=== PATIENT | female | born 1980 | race Caucasian/White ===

== ENCOUNTER 2024-07-21 08:00 | Outpatient (RCR) | payer MEDICARE, SELFPAY ==
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
--- NOTE | 2024-07-21 10:59 | BH.COMM ---
Communication Note Communication with Client Communication Note: Met with pt to complete initial paperwork and administer the CSSR-S screening and risk assessment. Pt is a high risk as pt reports chronic passive thoughts of and admits that she had a suicide attempt via overdose 3 weeks ago and one interrupted attempt via walking in traffic in which she was escorted to the hospital by the local electrical engineering draftsperson. Pt hospitalized 3x in past moth for suicidal ideation. Pt denies any current thoughts of, plan, intent, or thoughts of methods for suicide. Pt does have a safety plan. Pt has a hx of self-harm but none in the past 20 years. No access to weapons- however does report stockpiled medication. Receptive of safety planning and therapist and pt contacted pt's to dispose of excess medication at [facility] and put any prescriptions in a lock box. Pt in agreement with plan. Pt is future oriented and identifies protective factors. Discussed case with Dr. Barrientos and pt will be admitted to [facility] tx with a diagnosis of Bipolar , current episode depressed F31.30
--- NOTE | 2024-07-21 10:59 | BH.COMM ---
Communication Note Communication with Client Communication Note: Met with pt to complete initial paperwork and administer the CSSR-S screening and risk assessment. Pt is a high risk as pt reports chronic passive thoughts of and admits that she had a suicide attempt via overdose 3 weeks ago and one interrupted attempt via walking in traffic in which she was escorted to the hospital by the local slip feeder. Pt hospitalized 3x in past moth for suicidal ideation. Pt denies any current thoughts of, plan, intent, or thoughts of methods for suicide. Pt does have a safety plan. Pt has a hx of self-harm but none in the past 20 years. No access to weapons- however does report stockpiled medication. Receptive of safety planning and therapist and pt contacted pt's to dispose [facility] and put any prescriptions in a lock box. Pt in agreement with plan. Pt is future oriented and identifies protective factors. Discussed case with Dr. Barrientos and pt will be admitted to [facility] tx with a diagnosis of Bipolar , current episode depressed F31.30
--- NOTE | 2024-07-21 11:15 | BH.SGPN.GN ---
Behaviors/Verbalizations/Mental Status: [] Client alert and oriented, casually dressed and groomed. Eye contact good. Motor activity appropriate. Speech within normal limits. Affect congruent, mood depressed and anxious. Thoughts linear, logical, no signs of hallucinations or delusions Client Response/Progress/Benefit: [] Client was an active participant, AEB taking notes and providing input when prompted in group discussions and activities. Attentive during psychoeducation. Client engaged during interactive discussion in which the group defined self-care and discussed its benefits. Group discussed barriers to engaging in self-care. Client participated in small groups where they worked to identify common self-care ?myths?. Benefited from increased awareness of self-care, its benefits, and the consequences of not utilizing self-care strategies. Will continue IOP tx to prevent decompensation and maintain safety, promote healthy coping skill application, and increase functioning. Narrative Note: []
--- NOTE | 2024-07-21 11:15 | BH.SGPN.GN ---
Behaviors/Verbalizations/Mental Status: []Client alert and oriented, neatly dressed and groomed. Eye contact good. Motor activity appropriate. Speech within normal limits. Affect congruent, mood depressed and anxious. Thoughts linear, logical, no signs of hallucinations or delusions. Client Response/Progress/Benefit: [] Pt engaged participant AEB completing self-assessment worksheet and providing input throughout discussion. Pt completed worksheet identifying current self-care practices and what self-care activities Pt wants to start using. Pt selected physical self-care to begin practicing more consistently. Pt plans to do this by ?hydrating more.? Appeared to benefit from completing the self-care evaluation and gaining insights into current self-care practices, as well as identifying areas in which Pt would like to improve upon. Pt will continue IOP tx to prevent decompensation, maintain safety, and increase distress tolerance skills. Narrative Note: []
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
--- NOTE | 2024-07-21 11:56 | BH.MTP_ITS ---
Master Treatment Plan Patient Information Program Physician:: Dr. Abraham Barrientos Primary Therapist:: KATINA Valentin Psychiatric Diagnoses Psychiatric Diagnoses:: Major Depressive Disorder, Generalized Anxiety Disorder, ADHD Diagnosis Code(s):: F33.2 Estimated LOS Estimated LOS (in weeks):: 8 Problem/Goal #1 Problem/Goal #1 Stated Goal:: Pt will decrease depressive symptoms, isolation, anhedonia, and negative thinking. Description of Barriers: Pt has limited supports, several psychosocial stressors including her daughter's mental health and other daughter's behavioral issues, 3 recent inpatient admissions, low distress tolerance and significant negative core beliefs Functional Impact: Pt is a 43 year old female who has a hx of bipolar disorder, depression, anxiety, and adhd. She was referred to the [facility] IOP by her outpatient provider at [facility] after being hospitalized x3 in the month of June. Patient had suicide attempt by overdose attempt with trazodone after which she was hospitalized at [facility]. Shortly after patient had SI of walking in to traffic and called crisis and subsequently hospitalized at [facility]. She got sick shortly after and was started on prednisone which apparently triggered an episode of psychosis. [place] like she was in a mixed episode and was then hospitalized at [facility].. Follows with Dr. Mccoy at [address] [place] [address] Psychiatry. Describes mood now as anxious. Last night was particularly stressful as her daughter has autism and ADHD and has been having meltdowns. She is 8 years old. Last lithium was after hospitalization. 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 Did recently have a online neuropsychology appointment which apparently led to a diagnosis of autism Spectrum. Pt endorses chronic suicidal ideation, negative self-talk, guilt, worthlessness, hopelessness, racing thoughts, rumination, anhedonia, and low motivation Objectives Objective #1: Stated Objective: Pt will learn and utilize 2-3 healthy coping strategies to better manage depressive symptoms as shown by a decrease of DMS-5 symptoms for depression. Interventions: Through group and individual sessions, therapist will help pt identify triggers and warning signs of depression and guilt including emotional, physical, and behavioral changes. Therapist will teach pt various coping skills to manage symptoms and give pt tangible resources to use to regulate emotions. Therapist will use cognitive restructuring techniques and help pt gain awareness of negative thoughts that reinforce guilt and depression. Therapist will provide psychoeducation on maintenance cycles and help pt learn ways to break unhealthy maintenance cycles. Therapist will help pt incorporate behavioral activation and assist pt in setting SMART goals. Discharge Criteria: Pt will have met this goal when can report learning and using at least 2 coping skills to manage depressive symptoms and reduce isolation. Additionally, pt will have met this goal when pt's DSM-5 scores for depression decrease. Target Date: 09/16/24 Review Date: 08/10/24 Objective #2: Stated Objective: Client will work with therapist to develop a concrete ?crisis plan? or emotional dysregulation plan to implement during depressive episodes or acute events which includes emergency telephone numbers, internal/external coping strategies for SI/overwhelming emotions, lists of supports, warning signs, positive aspects of life, and motivations Interventions: Client will work with therapist to develop a ?crisis plan? or emotional dysregulation plan which includes emergency telephone numbers, internal/external coping strategies for SI/overwhelming emotions, lists of supports, warning signs, positive aspects of life, and motivations Discharge Criteria: complete emotion dysregulation plan. Target Date: 09/16/24 Review Date: 08/10/24 Problem/Goal #2 Problem/Goal #2 Stated Goal:: Will reduce anxiety symptoms and better manage ADHD through increasing emotional regulation and distress tolerance skills Description of Barriers: Pt has limited supports, several psychosocial stressors including her daughter's mental health and other daughter's behavioral issues, 3 recent inpatient admissions, low distress tolerance and significant negative core beliefs Functional Impact: Pt is a 43 year old female who has a hx of bipolar disorder, depression, anxiety, and adhd. She was referred to the [facility] IOP by her outpatient provider at [facility] after being hospitalized x3 in the month of June. Patient had suicide attempt by overdose attempt with trazodone after which she was hospitalized at [facility]. Shortly after patient had SI of walking in to traffic and called crisis and subsequently hospitalized at [facility]. She got sick shortly after and was started on prednisone which apparently triggered an episode of psychosis. [place] like she was in a mixed episode and was then hospitalized at [facility].. Follows with Dr. Mccoy at [address] [place] [address] Psychiatry. Describes mood now as anxious. Last night was particularly stressful as her daughter has autism and ADHD and has been having meltdowns. She is 8 years old. Last lithium was after hospitalization. 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 Did recently have a online neuropsychology appointment which apparently led to a diagnosis of autism Spectrum. Pt endorses chronic suicidal ideation, negative self-talk, guilt, worthlessness, hopelessness, racing thoughts, rumination, anhedonia, and low motivation Objectives Objective #1: Stated Objective: Pt will increase ability to manage stressors and anxiety by gaining 2-3 distress tolerance skills. Interventions: Through group and individual therapy, pt will learn various coping skills to help manage stress and anxiety. Therapist will utilize DBT distress tolerance skills to increase awareness and give pt tools to more effectively manage anxiety. Therapist will provide psychoeducation on emotional regulation and help pt identify unhealthy coping skills pt wants to change. Discharge Criteria: Pt will have accomplished this goal when can report improved ability to manage stressors and identify at least 2 distress tolerance skills. Target Date: 09/16/24 Review Date: 08/10/24 Objective #2: Stated Objective: pt will identify 2-3 cognitive distortions that lead to rumination and learn 2-3 ways to manage these thoughts to better manage anxiety. Interventions: Therapist will provide education on the most common cognitive distortions and teach pt the connection between thoughts, emotions, and feelings. Therapist will assist pt in identifying, challenging, and replacing dysfunctional thoughts with positive, more realistic thoughts. Therapist will use CBT and DBT techniques to help pt gain awareness of thinking errors and learn how to more effectively handle negative thoughts. Discharge Criteria: Pt will have accomplished this goal when can identify at least 2 cognitive distortions and at least 2 coping skills to manage negative thoughts. Target Date: 09/16/24 Review Date: 08/10/24
--- NOTE | 2024-07-21 11:56 | BH.MTP_ITS ---
Master Treatment Plan Patient Information Program Physician:: Dr. Abraham Barrientos Primary Therapist:: KATINA Valentin Psychiatric Diagnoses Psychiatric Diagnoses:: Major Depressive Disorder, Generalized Anxiety Disorder, ADHD Diagnosis Code(s):: F33.2 Estimated LOS Estimated LOS (in weeks):: 8 Problem/Goal #1 Problem/Goal #1 Stated Goal:: Pt will decrease depressive symptoms, isolation, anhedonia, and negative thinking. Description of Barriers: Pt has limited supports, several psychosocial stressors including her daughter's mental health and other daughter's behavioral issues, 3 recent inpatient admissions, low distress tolerance and significant negative core beliefs Functional Impact: Pt is a 43 year old female who has a hx of bipolar disorder, depression, anxiety, and adhd. She was referred to the [facility] IOP by her outpatient provider at [facility] after being hospitalized x3 in the month of June. Patient had suicide attempt by overdose attempt with trazodone after which she was hospitalized at [facility]. Shortly after patient had SI of walking in to traffic and called crisis and subsequently hospitalized at [facility]. She got sick shortly after and was started on prednisone which apparently triggered an episode of psychosis. [place] like she was in a mixed episode and was then hospitalized at [facility].. Follows with Dr. Mccoy at [address] [place] [address] Psychiatry. Describes mood now as anxious. Last night was particularly stressful as her daughter has autism and ADHD and has been having meltdowns. She is 8 years old. Last lithium was after hospitalization. 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 Did recently have a online neuropsychology appointment which apparently led to a diagnosis of autism Spectrum. Pt endorses chronic suicidal ideation, negative self-talk, guilt, worthlessness, hopelessness, racing thoughts, rumination, anhedonia, and low motivation Objectives Objective #1: Stated Objective: Pt will learn and utilize 2-3 healthy coping strategies to better manage depressive symptoms as shown by a decrease of DMS-5 symptoms for depression. Interventions: Through group and individual sessions, therapist will help pt identify triggers and warning signs of depression and guilt including emotional, physical, and behavioral changes. Therapist will teach pt various coping skills to manage symptoms and give pt tangible resources to use to regulate emotions. Therapist will use cognitive restructuring techniques and help pt gain awareness of negative thoughts that reinforce guilt and depression. Therapist will provide psychoeducation on maintenance cycles and help pt learn ways to break unhealthy maintenance cycles. Therapist will help pt incorporate behavioral activation and assist pt in setting SMART goals. Discharge Criteria: Pt will have met this goal when can report learning and using at least 2 coping skills to manage depressive symptoms and reduce isolation. Additionally, pt will have met this goal when pt's DSM-5 scores for depression decrease. Target Date: 09/16/24 Review Date: 08/10/24 Objective #2: Stated Objective: Client will work with therapist to develop a concrete ?crisis plan? or emotional dysregulation plan to implement during depressive episodes or acute events which includes emergency telephone numbers, internal/external coping strategies for SI/overwhelming emotions, lists of supports, warning signs, positive aspects of life, and motivations Interventions: Client will work with therapist to develop a ?crisis plan? or emotional dysregulation plan which includes emergency telephone numbers, internal/external coping strategies for SI/overwhelming emotions, lists of supports, warning signs, positive aspects of life, and motivations Discharge Criteria: complete emotion dysregulation plan. Target Date: 09/16/24 Review Date: 08/10/24 Problem/Goal #2 Problem/Goal #2 Stated Goal:: Will reduce anxiety symptoms and better manage ADHD through increasing emotional regulation and distress tolerance skills Description of Barriers: Pt has limited supports, several psychosocial stressors including her daughter's mental health and other daughter's behavioral issues, 3 recent inpatient admissions, low distress tolerance and significant negative core beliefs Functional Impact: Pt is a 43 year old female who has a hx of bipolar disorder, depression, anxiety, and adhd. She was referred to the [facility] IOP by her outpatient provider at [facility] after being hospitalized x3 in the month of June. Patient had suicide attempt by overdose attempt with trazodone after which she was hospitalized at [facility]. Shortly after patient had SI of walking in to traffic and called crisis and subsequently hospitalized at [facility]. She got sick shortly after and was started on prednisone which apparently triggered an episode of psychosis. [place] like she was in a mixed episode and was then hospitalized at [facility].. Follows with Dr. Mccoy at [address] [place] [address] Psychiatry. Describes mood now as anxious. Last night was particularly stressful as her daughter has autism and ADHD and has been having meltdowns. She is 8 years old. Last lithium was after hospitalization. 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 Did recently have a online neuropsychology appointment which apparently led to a diagnosis of autism Spectrum. Pt endorses chronic suicidal ideation, negative self-talk, guilt, worthlessness, hopelessness, racing thoughts, rumination, anhedonia, and low motivation Objectives Objective #1: Stated Objective: Pt will increase ability to manage stressors and anxiety by gaining 2-3 distress tolerance skills. Interventions: Through group and individual therapy, pt will learn various coping skills to help manage stress and anxiety. Therapist will utilize DBT distress tolerance skills to increase awareness and give pt tools to more effectively manage anxiety. Therapist will provide psychoeducation on emotional regulation and help pt identify unhealthy coping skills pt wants to change. Discharge Criteria: Pt will have accomplished this goal when can report improved ability to manage stressors and identify at least 2 distress tolerance skills. Target Date: 09/16/24 Review Date: 08/10/24 Objective #2: Stated Objective: pt will identify 2-3 cognitive distortions that lead to rumination and learn 2-3 ways to manage these thoughts to better manage anxiety. Interventions: Therapist will provide education on the most common cognitive distortions and teach pt the connection between thoughts, emotions, and feelings. Therapist will assist pt in identifying, challenging, and replacing dysfunctional thoughts with positive, more realistic thoughts. Therapist will use CBT and DBT techniques to help pt gain awareness of thinking errors and learn how to more effectively handle negative thoughts. Discharge Criteria: Pt will have accomplished this goal when can identify at least 2 cognitive distortions and at least 2 coping skills to manage negative thoughts. Target Date: 09/16/24 Review Date: 08/10/24
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
--- NOTE | 2024-07-22 09:00 | BH.SGPN.GN ---
Behaviors/Verbalizations/Mental Status: [] Pt alert and oriented, neatly dressed and groomed. Eye contact good. Motor activity appropriate. Speech shaky. Affect congruent, mood anxious Thoughts linear, logical, no signs of hallucinations or delusions. Reviewed pt?s symptom tracker, no risk for suicidal ideation, plan, or intent 07/22/24. Client Response/Progress/Benefit: []Pt was an active participant in group discussions. Attentive. Able to identify mental health wins including using deep breathing to manage her anxiety last night and taking breaks when she got overwhelmed last night. Pt's stressor today is ?my daughter was having meltdown after meltdown last night.? Pt is feeling anxious? this morning as it is pt?s second day of IOP. Pt receptive to feedback from peers which pt reported was helpful. Progress noted. Benefited from group support, encouragement, and feedback. Will continue IOP tx to prevent decompensation, improve daily functioning, and maintain safety. ? Narrative Note: []
--- NOTE | 2024-07-22 10:00 | BH.SGPN.GN ---
Behaviors/Verbalizations/Mental Status: [] Eye contact is good. Motor activity is appropriate. Appearance is casual. Speech is Appropriate. Mood is anxious and depressed. Affect is congruent. Thoughts are linear and logical. No evidence of psychosis. Client Response/Progress/Benefit: [] Pt was engaged and participating throughout, providing input and taking notes. Attentive during psychoeducation on anxiety and cognitive triangle. Participated in an interactive discussion on defining anxiety and identifying cognitive and physiological symptoms of anxiety. The group discussed helpful vs harmful anxiety. Pt identified their physical/physiological signs of anxiety which includes:migraines, butterflies in stomach, feeling increased heart rate Benefited from increased awareness and insight on anxiety and its impact. Will continue in IOP to prevent decompensation, maintain safety, and increase healthy coping. Narrative Note: []
--- NOTE | 2024-07-22 11:00 | BH.SGPN.GN ---
Behaviors/Verbalizations/Mental Status: [] Eye contact is fair. Motor activity is appropriate. Appearance is casual. Speech is Appropriate. Mood is depressed and anxious. Affect is congruent. Thoughts are linear and logical. No evidence of psychosis. Client Response/Progress/Benefit: [] Pt was an active participant AEB pt providing input and listening attentively to peers. Attentive during psychoeducation on mindfulness coping skills, body-based coping skills, and mind-based coping skills and their impact on reducing anxiety and improving overall mental health wellness. Group was able to identify self-soothing and mind-based coping skills which included: 5-senses, meditation, deep breathing, TIPP, thought challenging, prayer, affirmation, brain games, weighted blanket, and progressive muscle relaxation. Pt also participated with peers in practicing progressive muscle relaxation during session. Appeared to benefit from increasing repertoire of anxiety reduction skills. Pt will continue IOP to maintain safety, prevent decompensation/re-admission to psych unit, and to increase healthy coping. Narrative Note: []
--- NOTE | 2024-07-25 06:24 | PCM.BH.PSYEV ---
Psychiatric Evaluation Initial Evaluation Initial Evaluation: Initial Treatment Plan Patient Information Visit Information: ADMISSION DATE: 07/21/2024 EXPECTED LOS: 4-6 weeks Problems/Symptoms Problem #1:: Depression Symptom:: Sadness, hopelessness, worthlessness, anhedonia, low energy, recent suicidal ideation, low motivation Problem #2:: Anxiety Symptom:: Rumination, worry, recent history of panic attacks and panic, nightmares, avoidance, flashbacks with triggers Problem #3:: ADHD Symptom:: Poor concentration, limited motivation
--- NOTE | 2024-07-25 09:00 | BH.SGPN.GN ---
Behaviors/Verbalizations/Mental Status: [] ?Eye contact is good. Motor activity is appropriate. Appearance is casual. Speech is Appropriate. Mood is dysthymic . Affect is congruent. Thoughts are linear and logical. No evidence of psychosis. Reviewed daily check in sheet, suicidal ideations within established baseline, Pt denies plan or intent. Client Response/Progress/Benefit: [] ?Pt was an active participant in group discussions. Attentive. Did well to identify 2 mental health wins including using several healthy coping skills to manage complicated emotions following a disagreement with her [id number] over the weekend. Reports that she would have turned to self-harm in the past but instead went on a hike and spent time weeding her garden. Additional win noted as accomplishing some of her cleaning goals that she has been putting off. Pt reports feeling proud of the healthy and productive choices she made this weekend. St[place] noted as her relationship with her [id number], but did well to what is in her control that she can focus on in the situation. Progress noted. Benefited from group support, encouragement, and feedback. Will continue in IOP to prevent decompensation, promote mood stability and safety, and increase healthy coping consistency. Narrative Note: []
--- NOTE | 2024-07-25 09:00 | BH.SGPN.GN ---
Behaviors/Verbalizations/Mental Status: [] ?Eye contact is good. Motor activity is appropriate. Appearance is casual. Speech is Appropriate. Mood is dysthymic . Affect is congruent. Thoughts are linear and logical. No evidence of psychosis. Reviewed daily check in sheet, suicidal ideations within established baseline, Pt denies plan or intent. Client Response/Progress/Benefit: [] ?Pt was an active participant in group discussions. Attentive. Did well to identify 2 mental health wins including using several healthy coping skills to manage complicated emotions following a disagreement with her [id number] over the weekend. Reports that she would have turned to self-harm in the past but instead went on a hike and spent time weeding her garden. Additional win noted as accomplishing some of her cleaning goals that she has been putting off. Pt reports feeling proud of the healthy and productive choices she made this weekend. Stressor noted as her relationship with her [id number], but did well to what is in her control that she can focus on in the situation. Progress noted. Benefited from group support, encouragement, and feedback. Will continue in IOP to prevent decompensation, promote mood stability and safety, and increase healthy coping consistency. Narrative Note: []
--- NOTE | 2024-07-25 11:00 | BH.SGPN.GN ---
Behaviors/Verbalizations/Mental Status: []Pt alert and oriented, casually dressed and groomed. Eye contact good. Motor activity restless. Speech within normal limits. Affect congruent, mood anxious. Thoughts linear, logical, no signs of hallucinations or delusions. Client Response/Progress/Benefit: [] Pt responded well to session AEB Pt listening attentively to others and providing input during group discussion on the pay offs and costs of the different communication styles. Pt able to connect how current communication style impacts mental health. Connected with peers? comments about the importance of using assertive communication. Pt seemed to benefit from increasing awareness of healthy strategies to improve communication and worked with peers during the experiential activity to practice assertive communication. Pt was second-guessing herself during the activity, but did well with encouragement from peers. Will continue IOP tx to prevent decompensation, increase distress tolerance skills, and reduce negative thinking patterns. ??? Narrative Note: []
--- NOTE | 2024-07-25 11:40 | BH.MDN ---
Multi-Disciplinary Note Note 45-min Individual: Time Started:: 10:24 Date: 07/25/24 Purpose of session/treatment goals addressed:: Purpose of session was to process a stressor from the weekend impacting pt mood and resulting in increased self-harm urges. Eye Contact:: Good Motor Activity:: Appropriate (shaky at times when discussing) Appearance:: Casual Speech:: Appropriate Mood:: Anxious and Depressed Affect:: Congruent Thoughts:: Linear, Logical and No evidence of hallucinations/delusions noted Staff Interventions:: thought challenging, psychoeducation on: (mistaken beliefs), CBT techniques, rapport building, strengths perspective and taught coping skills (distress tolerance skills to prevent cutting) Client Response:: Pt responded well to session, open to meeting with therapist. Shared feeling ?sad? today and indicated that the weekend had been difficult for her due to an incident with her [id number] Thursday evening. Went on to explain that she had made a political post on Facebook that her jrcqtq-hf-can did not agree with and he made several hurtful comments as a result. Pt admits to responding to his comments with additional passive-aggressive posts which resulted in her [id number] becoming upset and ultimately ?disowning? pt. Pt reports that although she is not close with her [id number] and believes limited contact would be beneficial, his response did trigger thoughts of ?Nobody wants me around?. Shared passive thoughts of and self-harming throughout the weekend as well. Noted that she was able to refrain from acting on these thoughts and instead used deep breathing, healthy distraction, and reaching out to supports. Reports pulling weeds aided in emotional release and helped to reduce her negative thinking. Pt?s mother and sister also came and sat with her which she described as helpful. Some insight that her suicidal thoughts have become a safety behavior for moments she feels overwhelmed or has an adverse experience. Connected with self-harming and SI as means of ?escaping? the painful emotions. Therapist applauded pt for not acting on self-harm urges and worked with pt to review distress tolerance skills she can use instead. Provided pt with a list of healthy alternatives to self-harming. Pt and therapist processed the incident triggering thoughts of ?nobody wants me around? and pt provided insight that she believes this stems from her childhood. Receptive of psychoeducation on mistaken beliefs and willing to complete mistaken belief assessment to review in next session. Identified 3 positive self-talk messages she can read in moments she has this thought. Risks/Concerns:: Pt reports passive SI without plan or intent over the weekend. Able to follow-through with safety plan and reach out to supports. Denies actually wanting to and provided insight that this was in response to a disagreement with her [id number]. Future oriented and reports her children are protective factors. Progress Toward Goals/Plan:: Some progress noted as pt reports that although she is sad today, she did well to manage her emotions and not act on self-harming urges when faced with a stressor over the weekend. Reports utilizing skills such as reaching out to supports, deep breathing, and time outdoors as healthy distraction. Pt does note ongoing issues with caregiving stress and negative self-talk. Noted struggling with the relationship with herself for much of her life and wanting to work on improving this. Recommended continued IOP tx to prevent decompensation and maintain safety, improve healthy coping and distress tolerance, and stabilize mood. Time Stopped:: 11:04
--- NOTE | 2024-07-25 11:40 | BH.MDN ---
Multi-Disciplinary Note Note 45-min Individual: Time Started:: 10:24 Date: 07/25/24 Purpose of session/treatment goals addressed:: Purpose of session was to process a stressor from the weekend impacting pt mood and resulting in increased self-harm urges. Eye Contact:: Good Motor Activity:: Appropriate (shaky at times when discussing) Appearance:: Casual Speech:: Appropriate Mood:: Anxious and Depressed Affect:: Congruent Thoughts:: Linear, Logical and No evidence of hallucinations/delusions noted Staff Interventions:: thought challenging, psychoeducation on: (mistaken beliefs), CBT techniques, rapport building, strengths perspective and taught coping skills (distress tolerance skills to prevent cutting) Client Response:: Pt responded well to session, open to meeting with therapist. Shared feeling ?sad? today and indicated that the weekend had been difficult for her due to an incident with her [id number] Thursday evening. Went on to explain that she had made a political post on Facebook that her whyasx-tu-qls did not agree with and he made several hurtful comments as a result. Pt admits to responding to his comments with additional passive-aggressive posts which resulted in her [id number] becoming upset and ultimately ?disowning? pt. Pt reports that although she is not close with her uknbno-wa-ozi and believes limited contact would be beneficial, his response did trigger thoughts of ?Nobody wants me around?. Shared passive thoughts of and self-harming throughout the weekend as well. Noted that she was able to refrain from acting on these thoughts and instead used deep breathing, healthy distraction, and reaching out to supports. Reports pulling weeds aided in emotional release and helped to reduce her negative thinking. Pt?s mother and sister also came and sat with her which she described as helpful. Some insight that her suicidal thoughts have become a safety behavior for moments she feels overwhelmed or has an adverse experience. Connected with self-harming and SI as means of ?escaping? the painful emotions. Therapist applauded pt for not acting on self-harm urges and worked with pt to review distress tolerance skills she can use instead. Provided pt with a list of healthy alternatives to self-harming. Pt and therapist processed the incident triggering thoughts of ?nobody wants me around? and pt provided insight that she believes this stems from her childhood. Receptive of psychoeducation on mistaken beliefs and willing to complete mistaken belief assessment to review in next session. Identified 3 positive self-talk messages she can read in moments she has this thought. Risks/Concerns:: Pt reports passive SI without plan or intent over the weekend. Able to follow-through with safety plan and reach out to supports. Denies actually wanting to and provided insight that this was in response to a disagreement with her [id number]. Future oriented and reports her children are protective factors. Progress Toward Goals/Plan:: Some progress noted as pt reports that although she is sad today, she did well to manage her emotions and not act on self-harming urges when faced with a stressor over the weekend. Reports utilizing skills such as reaching out to supports, deep breathing, and time outdoors as healthy distraction. Pt does note ongoing issues with caregiving stress and negative self-talk. Noted struggling with the relationship with herself for much of her life and wanting to work on improving this. Recommended continued IOP tx to prevent decompensation and maintain safety, improve healthy coping and distress tolerance, and stabilize mood. Time Stopped:: 11:04
--- NOTE | 2024-07-27 09:00 | BH.SGPN.GN ---
Behaviors/Verbalizations/Mental Status: [] Client alert and oriented, casual appearance. Eye contact good. Motor activity appropriate. Speech within normal limits. Affect congruent, mood irritable. Thoughts linear, logical, no signs of hallucinations or delusions. Reviewed client's symptom tracker, no risk for suicidal ideation, plan, or intent. Client Response/Progress/Benefit: [] Client responded well to session AEB listening to others and sharing thoughts/feelings. client reported mental stressor has been watching the news specifically seeing all the protest happening across the world. Client stated she recognized yesterday that her anxiety was increasing significantly which led to her turning off the TV instead of spending hours watching something that was triggering her anxiety. Client noted mental's positive as going hiking and felt excited that she was able to photograph a rare mushroom that she saw while hiking. Appeared to benefit from support from peers. Will continue IOP tx to improve daily functioning, challenge negative thought patterns, and prevent decompensation. Narrative Note: []
--- NOTE | 2024-07-27 10:00 | BH.SGPN.GN ---
Behaviors/Verbalizations/Mental Status: []Client alert and oriented, casually dressed. Eye contact good. Motor activity appropriate. Speech within normal limits. Affect congruent, mood anxious and depressed. Thoughts linear, logical, no signs of hallucinations or delusions. Client Response/Progress/Benefit: [] Pt was an active participant AEB taking notes and engaging in group activity. Connected with the topic of pitfalls and listened to group discussion on barriers that prevent from choosing a healthier path to mental wellness. Group worked together to identify examples of personal pitfalls. These examples included; shutting down, not asking for help, negative thinking patterns, avoidance, and isolation. Pt benefited from group as Pt learned to better identify potential barriers to improving mental health symptoms. Identified barrier of not asking for help. Pt will continue IOP tx to prevent decompensation, improve distress tolerance, and increase self-confidence.
--- NOTE | 2024-07-27 11:05 | BH.SGPN.GN ---
Behaviors/Verbalizations/Mental Status: []Client alert and oriented, casually dressed and groomed. Eye contact good. Motor activity restless and shaking hands. Speech within normal limits. Affect congruent, mood content and anxious. Thoughts linear, logical, no signs of hallucinations or delusions. Client Response/Progress/Benefit: [] Pt receptive of session, engaged throughout AEB Pt actively listening and contributing to discussion as well as taking notes.? Pt participated in the experiential activity and did well to communicate ideas with peers and manage emotions. Pt attentive as group processed how the emotions and perspective of the group impacted the activity. Pt admitted that she wanted to shut down and quit, but pt was able to complete the activity with peers. Group worked together to identify different coping skills to help manage pitfalls. Pt identified a pitfalls they struggle with as focusing on the negative, fear of failure, and personalizing. Pt plans to work on their pitfall by ?using opposite action and not going home to nap.? Benefited from identifying personal pitfalls and strategies to overcome these pitfalls. Pt will continue IOP tx to prevent decompensation, increase use of healthy coping skills, and increase distress tolerance. Narrative Note: []
--- NOTE | 2024-07-29 08:50 | BH.COMM ---
Communication Note Communication with Client Communication Note: Pt reported hand tremors in the past week and she thought it might be related to having too much lithium in her system. Requested her lithium lab results which she was shown. Case discussed with Dr. Barrientos. He reviewed lithium levels as well and they are WNL. He requested further information from patient regarding past antipsychotic use and previous trials of medications for tremors. Pt reported hx of propranolol, Austedo, and cogentin for tremors. Most recent was Austedo in 2019. Past antipsychotic use of Seroquel, Latuda, and Vraylar. Dr. Barrientos recommended reducing lithium to 300mg BID. Pt informed and script sent.
--- NOTE | 2024-08-02 10:00 | BH.SGPN.GN ---
Behaviors/Verbalizations/Mental Status: []Pt alert and oriented, casually dressed and groomed. Eye contact good. Motor activity appropriate. Speech within normal limits. Affect congruent, mood anxious. Thoughts linear, logical, no signs of hallucinations or delusions. Client Response/Progress/Benefit: [] Pt participated in the group discussions AEB providing input and taking notes. Attentive during psychoeducation Goal Setting. Participated during the discussion on common barriers. Pt worked with group to identify common barriers to goal setting and pt reported personal barriers as procrastination, negative thinking, and self-doubt. Group also identified benefits of goals, which included: sense of purpose, improved self-confidence, more motivation for other goals, sense of accomplishment, and improved mental health. Pt identified personal benefits to goal setting. Benefited from increased awareness of mental health benefits of goals as well as psychoeducation on SMART goal criteria. Will continue in IOP to prevent decompensation, gain healthy coping skills, and improve distress tolerance and stress management skills. ?? Narrative Note: []
--- NOTE | 2024-08-02 11:33 | BH.MDN ---
Multi-Disciplinary Note Note 45-min Individual: Time Started:: 09:15 Date: 08/02/24 Purpose of session/treatment goals addressed:: To address and create a safety/coping plan with pt regarding pt's concerns for sx of luisa. Eye Contact:: Good Motor Activity:: Appropriate Appearance:: Casual Speech:: Appropriate Affect:: Congruent Thoughts:: Linear, Logical and No evidence of hallucinations/delusions noted Staff Interventions:: motivational interviewing, CBT techniques, rapport building, strengths perspective and completed risk assessment / safety planning (created coping plan for potential chaya sx) Client Response:: Pt receptive of session, actively engaged throughout. Reports that although her depression is reduced, she has some concern for potential sx of chaya. Described lack of sleep since Thursday, despite trying to do so. Noted feeling that her body did not need sleep. Additional sx includes increased irritability and restlessness/increased shakiness. Pt shared an example of lashing out at her when trying to much dinner last night as she could not stop her hands from shaking. Unsure if this is secondary to increased lithium dosage last week or potential chaya related restlessness. Shared that she has not experienced chaya to point of hospitalization ?for a few years?. Describes current sx as early warning signs and she typically will begin experiences urges to spend impulsively, organize the house in the middle of the night, or take off on a 3am walk. Pt reports her is now solely in charge of their finances as a spending safe guard. Receptive of working with therapist to safety plan for harm?s reduction if cycling. Pt identified plans to give her the car keys. Additional plan to begin incorporating a more structured bedtime routine to encourage better sleep. Bedtime routine to include going for a walk with a support after putting her daughter to bed. This is aimed at easing the transition from her daughter?s bedtime which can at times be overstimulating, to calming herself prior to bed. Pt reports she will then complete hygiene routine and progressive muscle relaxation in bed. If unable to sleep. Pt will engage in a calming activity such as listening to instrumental music and drawing. Pt agreeable to begin mood tracker as well to begin monitoring changes in symptomology based on day/time, ect., as well as discuss additional warning signs with to further safety plan. Pt noted beliefs that a recent stressor, changes in her 8-year-old daughter?s behavior may have been a trigger to her own change in mood state. Discussed taking breaks with her when overwhelmed, as well as provided pt with online and local parenting support groups and resources for parents of children with an autism diagnosis. Will consult with program psychiatrist and continue to monitor sx. Risks/Concerns:: Pt denies SI, plan, or intent as of this date 08/02/24. Does report lack of sleep and concerns for chaya which is being addressed with program psychiatrist and pt willing to safety plan with therapist as well. Progress Toward Goals/Plan:: Progress variable. Pt denies any current SI, plan, or intent. Pt reports following through with practicing taking a break, getting back into activities she enjoys, and deep breathing. Nightly progressive muscle relaxation to improve sleep. Pt reports limited to no sleep since Thursday which has been a stressor. Increased caregiving stress as well contributing to heightened irritability. Pt recommended continued IOP tx to prevent decompensation, improve mood stability, and maintain safety. Time Stopped:: 09:55
--- NOTE | 2024-08-02 11:40 | PCM.BH.PN ---
Charges/Coding Behavior Health Behavior Health EST Pt E/M: 78955 Est Pt Level IV Intake Intake Visit Reasons: Poor sleep Allergies No Known Allergies Allergy (Verified 07/29/24 09:02) Medications ?Medication ?Instructions ?Recorded ?Confirmed ?Type doxepin 10 mg capsule 10 mg PO QHS PRN sleep #30 caps 07/22/24 Rx hydroxyzine pamoate 25 mg capsule 25 mg PO TID PRN anxiety 14 days 07/22/24 07/29/24 Rx (Vistaril) #42 caps atomoxetine 40 mg capsule 40 mg PO DAILY 07/29/24 07/29/24 History (Strattera) gabapentin 300 mg capsule 300 mg PO BID 07/29/24 07/29/24 History hydroxyzine HCl 25 mg tablet 25 mg PO TID PRN anxiety 07/29/24 07/29/24 History lithium carbonate 300 mg tablet 300 mg PO BID #60 tabs 07/29/24 Rx sertraline 100 mg tablet (Zoloft) 100 mg PO DAILY 07/29/24 07/29/24 History levothyroxine 50 mcg tablet 50 mcg PO DAILY 08/02/24 08/02/24 History (Euthyrox) quetiapine 50 mg tablet (Seroquel) See Rx Instructions .Route 08/02/24 Rx .COMPLEX #60 tabs [facility] [place] () Medical History (Updated 08/02/24 @ 12:[address] Shania Montenegro MD) Bipolar I disorder Exam Mental Status Exam- Psych () Appearance casually dressed, adequately groomed and no apparent distress Attitude cooperative and calm Activity/Motor Behavior MSE activity/motor behavior finding no adventitious movements Speech regular rate and regular volume Mood other (Slightly elevated) Affect full range Thought Process linear and logical Thought Content other (Reports seeing shadows and possible some mumbled voices last night) Suicidal Ideation none Homicidal Ideation none Attention intact Concentration intact Sensorium/Orientation awake and alert Memory/Cognition intact Insight fair Judgement fair Exam () Narrative Exam Narrative: -Current psychiatric medications: Gabapentin 300 mg p.o. twice daily, doxepin 10 mg nightly, Strattera 40 mg daily, hydroxyzine 25 mg 3 times daily as needed, lithium 300 mg twice daily, Zoloft 100 mg -SUBJECTVE: Patient reports since last or Thursday she has not been sleeping but has not been tired, she is not sure if this started before or after her lithium dose was decreased. Is still having some shaking but is only given the decreased dose for several days. Notes that she has been irritable but does not necessarily have any increased goal-oriented activity. She reports last night she had some jumbled and mumbled voices that she did not think were there and sometimes she will see shadows out of the corner of her eyes but when she looks they are gone but denies any other AH/VH. No SI or HI. Regard patient's tremor we did discuss that she is on Synthroid, previously it was felt that her Synthroid dose was causing tachycardia and she had been decreased to 50 mcg sometimes last year and has not had any further lab work since that time per patient and she is agreeable to getting thyroid labs. Discussed given her lack of sleep in light of her history that she will likely need a medication adjustment to help improve sleep. Patient tolerated Seroquel well in the past but was ultimately taken off she thinks due to increased appetite, she is agreeable to trying this again to see if it can help her sleep and help current symptoms. Assessment & Plan () Assessment & Plan (1) Bipolar I disorder: Problem Details: Patient has a history of bipolar disorder, for several days she has had decreased sleep but is not tired and has been irritable Plan: Patient reports in the past if she has been able to get sleep she usually will improve before things get worse, agreeable to trialing Seroquel, take 50 mg tonight then increase to 100 mg nightly. She does believe she was only on Seroquel nightly before and not twice daily. Can certainly escalate dose if needed from there. She will continue her other medications at current doses. She is unsure if doxepin has been helpful, ultimately if she is sleeping better with Seroquel may be able to discontinue doxepin if she still does not derive any benefit Medications: New quetiapine (Seroquel) Take 50mg for one night then 100mg nightly after 60 tabs 0RF Visit Details Comments: Spent a total of [ ] minutes on the date of the service which included [ ].
--- NOTE | 2024-08-02 13:01 | BH.DR.ITP ---
Initial Treatment Plan Patient Information Visit Information: ADMISSION DATE: EXPECTED LOS: 6-8 weeks Diagnoses:: Bipolar disorder Problems/Symptoms Problem #1:: Bipolar disorder Symptom:: Lack of sleep, increased irritability
--- NOTE | 2024-08-03 09:00 | BH.SGPN.GN ---
Behaviors/Verbalizations/Mental Status: [] Client alert and oriented, casual appearance. Eye contact good. Motor activity appropriate. Speech within normal limits. Affect congruent, mood euthymic. Thoughts linear, logical, no signs of hallucinations or delusions. Reviewed client's symptom tracker, no risk for suicidal ideation, plan, or intent. Client Response/Progress/Benefit: [] Client responded well to session AEB listening to others and sharing thoughts/feelings. Client reported mental positive as taking her new medication last night and it helped her sleep. Client stated she really has not had a lot of sleep in the last few days and is feeling much better now that she got a good night's rest. Client reported additional mental positive as being able to change the way she responded to her daughter yesterday which resulted in client being able to de-escalate a situation. Client noted she does not have a current stressor. Appeared to benefit from support from peers. Will continue IOP tx to improve mood stability, challenge negative thought patterns, and prevent decompensation. Narrative Note: []
--- NOTE | 2024-08-03 10:00 | BH.SGPN.GN ---
Behaviors/Verbalizations/Mental Status: []Pt alert and oriented, neatly dressed and groomed. Eye contact good. Motor activity appropriate. Speech within normal limits. Affect congruent, mood euthymic. Thoughts linear, logical, no signs of hallucinations or delusions. Client Response/Progress/Benefit: [] Pt was an active participant in group discussion and experiential activity. Attentive during psychoeducation on resilience and provided input throughout. Participated in interactive discussion with peers on the definition of resilience and where it comes from. Group identified that resiliency can be impacted by; past experiences, upbringing, and personality traits. Able to relate experiential activity of group juggle to topics of resilience. Worked with peers in small group in which they identified factors that contribute to resilience and did well providing ideas. Benefited from increased awareness of resilience and the factors that contribute to building resilience. Will continue in IOP tx to increase distress tolerance skills, improve daily functioning, and increase self-confidence. ? Narrative Note: []
--- NOTE | 2024-08-03 11:00 | BH.SGPN.GN ---
Behaviors/Verbalizations/Mental Status: [] Eye contact is good. Motor activity is appropriate. Appearance is casual. Speech is Appropriate. Mood is anxious. Affect is congruent. Thoughts are linear and logical. No evidence of psychosis. Client Response/Progress/Benefit: [] Pt responded well to session AEB completing the resilience worksheet provided. Pt actively participated in the discussion and worked cooperatively with group to identify strategies to enhance each of the components discussed. Pt reports belief they already use resilience trait of ?making connections and moving towards goals.? Pt was able to identify areas related to resilience to focus on in the future. Pt seemed to benefit from discussing strategies for improving personal resilience and identifying resilience traits Pt already possesses. Will continue IOP tx to maintain safety, prevent decompensation/re-admission to psych unit, and to increase healthy coping.
--- NOTE | 2024-08-05 09:00 | BH.SGPN.GN ---
Behaviors/Verbalizations/Mental Status: [] Pt alert and oriented, neatly dressed and groomed. Eye contact good. Motor activity appropriate. Speech within normal limits. Affect congruent, mood euthymic. Thoughts linear, logical, no signs of hallucinations or delusions. Reviewed pt?s symptom tracker, no risk noted as pt was within her baseline for SI on 08/05/24. Client Response/Progress/Benefit: []Pt was an active participant in group discussions. Attentive. Able to identify mental health wins including getting to IOP today despite being tired and not ?jumping right to suicidal thoughts? when she and her got into an argument. Pt shared she took a break and went to bed early instead. ?Pt's stressor today is ?I got in a fight with my last night.? The group offered pt encouragement and emotional support which pt reported was helpful. Pt is feeling content this morning. Pt receptive to feedback from peers. Progress noted. Benefited from group support, encouragement, and feedback. Will continue IOP tx to increase distress tolerance skills, reduce frequency of passive SI, and improve daily functioning. ? Narrative Note: []
--- NOTE | 2024-08-05 10:10 | BH.SGPN.GN ---
Behaviors/Verbalizations/Mental Status:?[] Client alert and oriented, casually dressed and groomed. Eye contact fair. Motor activity appropriate. Speech within normal limits. Affect congruent, mood anxious. Thoughts linear, logical, no signs of hallucinations or delusions. Client Response/Progress/Benefit:?[] Pt engaged in session AEB client listening attentively to peers and providing input. Attentive and contributed to discussion as group worked on defining?self-confidence?and identifying benefits of?self-confidence, as well as factors that can effect?self-confidence?levels. Pt was an active participant in activity in which the group read and processed each right on the Personal Bill of Rights worksheet. Pt identified the rights they struggle with believing. Benefited from increased education on?self-confidence?and what effects it. Pt will continue IOP tx to challenge distorted/negative thoughts, improve emotional regulation skills, and prevent decompensation.
--- NOTE | 2024-08-05 11:15 | BH.SGPN.GN ---
Behaviors/Verbalizations/Mental Status: [] Client alert and oriented, casually dressed and groomed. Eye contact good. Motor activity appropriate. Speech within normal limits. Affect congruent, mood anxious. Thoughts linear, logical, no signs of hallucinations or delusions. Client Response/Progress/Benefit: [] Pt engaged in session AEB client listening attentively to peers and providing input. Attentive and contributed to discussion as group worked on identifying thought patterns and behaviors that negatively effect self-confidence. Pt identified behaviors that effect their confidence as: self-comparing and giving up on things. Engaged in confidence building activity and worked with the group to identify strategies for improving self-confidence. Pt identified plans to begin positive affirmations as a means of improving own self-confidence. Benefited from increased education on self-confidence building skills. Pt will continue IOP tx to increase self-confidence, improve emotional regulation skills, and prevent decompensation. Narrative Note: []
--- NOTE | 2024-08-09 09:05 | BH.SGPN.GN ---
Behaviors/Verbalizations/Mental Status: [] Eye contact is good. Motor activity is appropriate. Appearance is casual. Speech is Appropriate. Mood is anxious and depressed. Affect is congruent. Thoughts are linear and logical. No evidence of psychosis. Reviewed daily check in sheet and no reports of suicidal ideations or intent. Client Response/Progress/Benefit: [] Pt participated at times during the group discussions. Attentive. Reports very overwhelming weekend. Elaborated on stressors which primarily involved a medication change which exacerbated mental health issues with her daughter. At one point she had to speak with mental health crisis line and police due to daughter?s behaviors. Despite these significant stressors she was able to ask for help, give herself some respite, and complete self-care. Limited progress due to significant stressors however reports that recent medication changes have helped with sleep and hypomania. Benefited from group support, encouragement, and feedback. Will continue in IOP to maintain safety, prevent decompensation/re-admission, and improve functioning. Narrative Note: []
--- NOTE | 2024-08-09 10:15 | BH.SGPN.GN ---
Behaviors/Verbalizations/Mental Status: []Pt alert and oriented, neatly dressed and groomed. Eye contact good. Motor activity appropriate. Speech within normal limits. Affect congruent, mood content, anxious. Thoughts linear, logical, no signs of hallucinations or delusions. Client Response/Progress/Benefit: [] Pt participated during the group discussion, providing input and remaining attentive during psychoeducation. Participated in experiential activity. Pt contributed during interactive discussion on the consequences of unhealthy expression of emotions. Worked with group to identify several consequences which included hurting relationships and isolating oneself. Contributing during interactive discussion on common potholes to effectively communicating. Pt was able to relate and make connections between the experiential activity and the overall topic, managing emotions through activity by rocking [id number] and thought challenging. Benefited from increased awareness of how stress and emotions can impact one's ability to communicate. Will continue in IOP to prevent decompensation, increase stress management skills, and improve daily functioning. Narrative Note: []
--- NOTE | 2024-08-09 10:15 | BH.SGPN.GN ---
Behaviors/Verbalizations/Mental Status: []Pt alert and oriented, neatly dressed and groomed. Eye contact good. Motor activity appropriate. Speech within normal limits. Affect congruent, mood content, anxious. Thoughts linear, logical, no signs of hallucinations or delusions. Client Response/Progress/Benefit: [] Pt participated during the group discussion, providing input and remaining attentive during psychoeducation. Participated in experiential activity. Pt contributed during interactive discussion on the consequences of unhealthy expression of emotions. Worked with group to identify several consequences which included hurting relationships and isolating oneself. Contributing during interactive discussion on common potholes to effectively communicating. Pt was able to relate and make connections between the experiential activity and the overall topic, managing emotions through activity by rocking [id number] and thought challenging. Benefited from increased awareness of how stress and emotions can impact one's ability to communicate. Will continue in IOP to prevent decompensation, increase stress management skills, and improve daily functioning. Narrative Note: []
--- NOTE | 2024-08-09 11:15 | BH.SGPN.GN ---
Behaviors/Verbalizations/Mental Status: [] Eye contact is good. Motor activity is appropriate. Appearance is casual. Speech is Appropriate. Mood is depressed and anxious. Affect is congruent. Thoughts are linear and logical. No evidence of psychosis. Client Response/Progress/Benefit: [] Client engaged in session AEB client listening attentively to peers and providing input at times. Attentive during psychoeducation on 4 zones of regulation. Pt able to identify feelings and behaviors for each zone. Pt identified coping skills one can use to support self in each zone. Pt stated belief that pt is in the yellow zone today. Pt reports grounding, talking to supports and mindfulness skills to move herself closer to the green zone. Benefited from increased education on zones of regulation or stages of alertness for emotions and healthy coping skills to use for each zone. Pt will continue IOP tx to prevent decompensation/re-admission to psych unit, maintain safety, stabilize mood, and improve functioning. Narrative Note: []
--- NOTE | 2024-08-10 09:05 | BH.SGPN.GN ---
Behaviors/Verbalizations/Mental Status: [] Eye contact is good. Motor activity is appropriate. Appearance is casual. Speech is Appropriate. Mood is euthymic. Affect is full. Thoughts are linear and logical. No evidence of psychosis. Reviewed daily check in sheet and no reports of suicidal ideations or intent. Client Response/Progress/Benefit: [] Pt participated at times during the group discussion. Attentive. Daily symptom tracker notes minimal distress. Pt reports feeling ?content?. Tells group that she took feedback from peers yesterday and looked into podcasts as a form of distraction and self-care. She found several interesting podcasts and believes this will be a very helpful tool for her mental health. Progress noted. No significant stressors noted. Reports sleep has improved since last week and mood is stabilizing from possible hypomanic episode. Benefited from group support, encouragement, and feedback. Will continue in IOP to maintain safety, prevent decompensation/re-admission to psych unit, and to stabilize mood. Narrative Note: []
--- NOTE | 2024-08-10 10:10 | BH.SGPN.GN ---
Behaviors/Verbalizations/Mental Status: [] Eye contact is good. Motor activity is appropriate. Appearance is casual. Speech is Appropriate. Mood is anxious. Affect is congruent. Thoughts are linear and logical. No evidence of psychosis. Client Response/Progress/Benefit: [] Pt engaged in session AEB listening attentively to others and providing input throughout. Pt engaged in activity, able to connect how it can be uncomfortable and difficult to practice acceptance when situations are out of one?s own control. Identified she is struggling with accepting her daughter is going to need a lot of help throughout life. Worked with peer group to define acceptance and identify the benefits that acceptance can bring. Benefits included; reduce stuckness, reduced stress, helps one to focus on situations we can change, and decreased negative self-talk. Seemed to benefit from increased awareness of the meaning as well as the importance of acceptance. Will continue in IOP to prevent decompensation, challenge distorted thoughts, and increase healthy coping.
--- NOTE | 2024-08-10 11:15 | BH.SGPN.GN ---
Behaviors/Verbalizations/Mental Status: []Pt alert and oriented, casually dressed and groomed. Eye contact good. Motor activity appropriate. Speech within normal limits. Affect congruent, mood anxious. Thoughts linear, logical, no signs of hallucinations or delusions. Client Response/Progress/Benefit: [] Pt responded well to session AEB taking notes and contributing to discussion throughout. Pt engaged as group continued discussion on acceptance and the mental health benefits of practicing acceptance. Pt and peers identified what makes acceptance challenging and pt completed a self-reflection exercise on what is hard to accept in pt's life. Pt identified something that is currently hard to accept as her daughter's ongoing struggles with behavioral issues. Client stated by not accepting this it leads to negative self-talk, hopelessness, and guilt. Group identified strategies to increase acceptance. Pt noted wanting to work on finding others experiencing similar issues as a strategy for improving acceptance in this area. Pt appeared to benefit from gaining insight and learning strategies to increase acceptance. Pt will continue IOP tx to improve insight, increase mood stability, and prevent decompensation. Narrative Note: []
--- NOTE | 2024-08-10 14:22 | BH.MTP_ITS ---
Treatment Plan Review Demographics Date of Admission:: 07/21/24 Date of Treatment Plan Review:: 08/12/24 Admitting Diagnoses:: Diagnosis #1:: Major Depressive Disorder Diagnosis #2:: Generalized Anxiety Disorder Diagnosis #3:: ADHD Diagnosis #4:: Bipolar I Current Diagnoses:: Diagnosis #1:: Major Depressive Disorder Diagnosis #2:: Generalized Anxiety Disorder Diagnosis #3:: ADHD Diagnosis #4:: Bipolar I Patient Status Patient's Response to Treatment:: Pt has maintained consistent attendance and is an active participant in groups and individual sessions. Provides supportive feedback, insight, and completes all assigned homework. Status of Current Problems and Symptoms: Ongoing problems. Per DSM-5 and pt self-report, overall sx and ability to manage symptomology is improved. Pt scores reflect an overall 38% reduction in mental health sx, Pt expresses improved mood and coping capacity. Pt does continue to endorse anxiety, low stress tolerance, guilt, hopelessness at times, difficulties managing her daughter?s behavioral issues, and conflict with her regarding parenting. Progress Problem #1: Problem Name:: Depression, adhd Status of Goals:: In progress. Obj 1: not met. Pt is able to identify healthy coping skills, but is struggling with applying those skills consistently outside of treatment; specifically in regard to negative self-talk. Reports more actively engaging in activities she enjoys if motivation is there; however on days she is not motivated she struggles with doing so. Does note continued negative self-talk related to her ability to navigate her 8 year old daughter?s behavioral issues and struggles with self-doubt and fear she is a ?bad mother? as a result. Depressive sx reduced by 20% Obj 2: Complete. client has successfully created and reports consistent utilization of a depression coping plan to aid in managing and prevention of potential crisis. Reports a 67% reduction in passive suicidal ideation as a result. Team Recommendations:: Team recommends client continue current goals and objectives to give more time for progress to be observed. Problem #2: Problem Name:: Anxiety, mood instability Status of Goals:: Continued progress encouraged. Obj 1: Client has been taught and can verbalize healthy calming and distress tolerance skills for anxiety like grounding, guided meditation, and breathing skills. Client has verbalized she does think these skills help when remembering to utilize them, though often forgets in moments of high stress. Obj 2: Client has awareness of several cognitive distortions and negative core beliefs reinforcing her anxiety and depression; however, she struggles with believing the positive self-talk messages she is trying to more consistently incorporate. Per DSM 5 cross-cutting scores at review client's anxiety has decreased by 25%. Team Recommendations:: Team recommends client continue current goals and o bjectives to give more time for progress to be observed, with specific focus on improving interpersonal effectiveness
--- NOTE | 2024-08-10 14:22 | BH.MDN_ITS ---
Multi-Disciplinary Note Note 30-min Individual: Time Started:: 12:08 Date: 08/10/24 Purpose of session/treatment goals addressed:: Purpose of session to address tx plan goal #1 obj #2 and goal #2 obj #1. Eye Contact:: Good Motor Activity:: Appropriate Appearance:: Casual Speech:: Appropriate and Other (vocal shaking tick present) Mood:: Euthymic and Anxious Affect:: Congruent Thoughts:: Linear, Logical and No evidence of hallucinations/delusions noted Staff Interventions:: motivational interviewing, psychoeducation on: (distress tolerance skills), CBT techniques, strengths perspective, reviewed DSM-5 and goal setting Client Response:: Pt receptive of session, actively engaged throughout. Reports overall mood and sleep are improved since last week. Noted she has been sleeping through the night without problem since adjusting medications while experiencing sx of hypomania. Described improved mood stability over the last week as well. Worked with therapist to review homework to identify common warning signs and triggers for changes in mood such as hypomania or depression. Pt identified a polo change as differences in perspective and energy levels. Noted however that since she has started IOP tx, she is feeling an increase in her overall ability to find small positives if she has been stuck on the negatives. Did express some difficulties in remembering to do this in the moment however, which at times impedes overall distress tolerance. Connected with concept of using a visual aid as a cue to thought challenge in those moments. Indicated wanting to make something she can put on her water bottle or a polo chain where she will consistently be exposed to it. Went on to report increased engagement in activities she is finding enjoyable, as well as spending time exploring new interests such as podcasts. Primary stressor continues to be managing caregiving responsibilities for her 6 [id number] who struggles with significant mental health and behavioral issues. Would like to work on improving her own emotion regulation in these moments as pt provided insight that when overstimulated/overwhelmed she becomes easily dysregulated as well. Did identify plans to purchase noise canceling headphone to reduce sensory over load and look into options for crease a sensory calming area in the home as well. Risks/Concerns:: None noted. Pt denies SI, plan, or intent as of this date 08/10/24 Progress Toward Goals/Plan:: Progress noted. Pt reports improved mood and DSM-5 scores reflect overall sx reduction since beginning IOP tx 3 weeks ago. Pt noted increased confidence and improved ability to challenge her perspective. Improved motivation and energy, noting increased involvement in activities she enjoys and goals for her future. Pt identifies some recent conflict with her regarding childcare responsibilities and approaches in managing the needs and behaviors of their daughter. Daughter's mental health and behavioral issues continue to be a significant source of stress and negative self-talk, doubt when struggling to help her daughter regulate. Pt recommended continued IOP tx to further improve confidence in her own ability to cope, distress tolerance, as well as prevent decompensation. Time Stopped:: 12:38
--- NOTE | 2024-08-12 08:53 | PCM.BH.PN ---
Intake Intake Visit Reasons: Follow-up Allergies No Known Allergies Allergy (Verified 07/29/24 09:02) Medications ?Medication ?Instructions ?Recorded ?Confirmed ?Type doxepin 10 mg capsule 10 mg PO QHS PRN sleep #30 caps 07/22/24 Rx hydroxyzine pamoate 25 mg capsule 25 mg PO TID PRN anxiety 14 days 07/22/24 07/29/24 Rx (Vistaril) #42 caps atomoxetine 40 mg capsule 40 mg PO DAILY 07/29/24 07/29/24 History (Strattera) gabapentin 300 mg capsule 300 mg PO BID 07/29/24 07/29/24 History hydroxyzine HCl 25 mg tablet 25 mg PO TID PRN anxiety 07/29/24 07/29/24 History lithium carbonate 300 mg tablet 300 mg PO BID #60 tabs 07/29/24 Rx sertraline 100 mg tablet (Zoloft) 100 mg PO DAILY 07/29/24 07/29/24 History levothyroxine 50 mcg tablet 50 mcg PO DAILY 08/02/24 08/02/24 History (Euthyrox) quetiapine 100 mg tablet 150 mg (1.5 x 100 mg) PO QDAY 30 08/12/24 Rx days #45 tabs HPI () History of Present Illness History provided by: patient Chief complaint: Depression/anxiety HPI: La Kelley is a 43 year old female seen today for follow up evaluation. Has been doing better since starting on quetiapine. Has been sleeping better, getting about 8-9 hours of sleep since starting with exception of the last two night. Mood has been a little more irritable the past two days, but prior to that was feeling somewhat brighter. Did follow with psychiatrist, Dr. Mccoy, last Thursday who did discontinue patient's doxepin. Believes this has been reason for somewhat worsening sleep. Tremor is largely back to baseline since reducing lithium. Appetite has been stable. Feels like program has been helpful this point. Feeling close to normal self. Youngest daughter, who has autism, had a violent meltdown earlier this week and she had to call crisis on patient. They now have belief that daughter has bipolar. Has had some fleeting thoughts of not being alive, denies any active thoughts of suicide. Patient denies any SI HI or AVH. Review of systems () Constitutional Denies: fever(s), chills, change in weight or fatigue Eyes Denies: change in vision or blurry vision Ears, Nose, Mouth, Throat Denies: throat pain, neck pain or change in hearing Cardiovascular Denies: chest pain, palpitations or dyspnea Respiratory Denies: dyspnea, cough or wheezing Gastrointestinal Denies: abdominal pain, nausea, vomiting, diarrhea or constipation Genitourinary Denies: dysuria or urinary frequency Musculoskeletal Denies: back pain, neck pain, joint pain or muscle weakness Integumentary/Breast Denies: rash or new lesions Neurological Reports: other (Tremor significantly improved); Denies: headache(s), dizziness or confusion Endocrine Denies: fatigue or excessive sweating Hematologic/Lymphatic Denies: easy bruising or easy bleeding Allergic/Immunologic Denies: wheezing Exam Mental Status Exam- Psych () Appearance casually dressed, adequately groomed and no apparent distress Attitude cooperative and calm Activity/Motor Behavior MSE activity/motor behavior finding no adventitious movements Speech regular rate and regular volume Mood OK Affect constricted Thought Process linear and logical Thought Content no delusions and no hallucinations Suicidal Ideation none Homicidal Ideation none Attention intact Concentration intact Sensorium/Orientation awake and alert Memory/Cognition intact Insight fair Judgement fair Assessment & Plan () Assessment & Plan (1) Bipolar I disorder: Plan: - Largely doing well in regards to mood - Tremor has markedly improved ? Patient is to increase her quetiapine to 150 mg at bedtime secondary to poor sleep since discontinuing doxepin Continue other medications as before Medications: New quetiapine Take 50mg for one night then 100mg nightly after 60 tabs 0RF Charges/Coding Behavior Health Behavior Health EST Pt E/M: 16827 Est Pt Level IV
--- NOTE | 2024-08-12 09:05 | BH.SGPN.GN ---
Behaviors/Verbalizations/Mental Status: [] Eye contact is good. Motor activity is appropriate. Appearance is casual. Speech is Appropriate. Mood is anxious and irritable. Affect is full. Thoughts are linear and logical. No evidence of psychosis. Reviewed daily check in sheet and no reports of suicidal ideations or intent. Client Response/Progress/Benefit: [] Pt participated at times during the group discussions. Attentive. Daily symptom tracker notes 3/5 for anxiety and irritability. Shred that she has disengaged from social media feedback loop and elaborated on her reasons. She believes that this has decreased her anxiety, worry, stress, and hoplessness. Progress noted. Sleep is stabilizing. Denies hypomanic symptoms. Benefited from group support, encouragement, and feedback. Will continue in IOP to maintain safety, prevent decompensation/re-admission to psych unit, and to improve functioning. Narrative Note: []
--- NOTE | 2024-08-12 10:10 | BH.SGPN.GN ---
Behaviors/Verbalizations/Mental Status: [] Eye contact is good. Motor activity is appropriate. Appearance is casual. Speech is Appropriate. Mood is anxious. Affect is congruent. Thoughts are linear and logical. No evidence of psychosis. Client Response/Progress/Benefit: [] Pt semi engaged participant AEB listening to others, engaging in activity, and providing feedback at times. Attentive during psychoeducation that provided insight into obstacles that impede mental wellness. Pt shared with group current mental health reality and desired mental health reality. Identified barriers to desired reality include: p feelings of being overwhelmed and shutting down, fear of failure, and financial issues. Benefited from taking look at current mental health state and obstacles for progress. Pt to continue IOP tx to improve mood stability, challenge distortions, and prevent decompensation.
--- NOTE | 2024-08-12 11:10 | BH.SGPN.GN ---
Behaviors/Verbalizations/Mental Status: [] Eye contact is good. Motor activity is appropriate. Appearance is casual. Speech is Appropriate. Mood is euthymic. Affect is congruent. Thoughts are linear and logical. No evidence of psychosis. Client Response/Progress/Benefit: [] Pt was an engaged participant in group discussion and activity. Worked with group to identify strategies to help overcome barriers and obstacles to desired reality. Group developed strategies for the common barriers. Identified personal barriers to desired reality and choose one obstacle to work on. Pt stated wanting to work on barrier of negative thinking by reminding herself that thoughts are not facts. Pt seemed to benefit from increased repertoire of healthy coping skills/strategies to overcome common barriers to moving forward. Pt is to continue IOP increase functioning, challenge distortions, and prevent decompensation. Narrative Note: []
--- NOTE | 2024-09-01 10:10 | BH.SGPN.GN ---
Behaviors/Verbalizations/Mental Status: [] Client alert and oriented, casually dressed and groomed. Eye contact good. Motor activity appropriate. Speech within normal limits. Affect congruent, mood euthymic. Thoughts linear, logical, no signs of hallucinations or delusions. Client Response/Progress/Benefit: [] Client was an active participant in activity and taking notes during group discussion. Attentive during psychoeducation on coping skills, why people use unhealthy coping skills, and how to replace unhealthy coping skills. Benefited from increased understanding of unhealthy coping skills and the need for developing healthy interna and external coping skills. Pt will continue IOP tx to prevent decompensation and improve daily functioning. Narrative Note: []
== END 2024-08-15 23:59 ==
LOC: BHIOP 08:00
PROVIDERS: PCP Family Medicine; Referring Provider Psychiatry & Neurology Psychiatry; Visit Provider Psychiatry & Neurology Psychiatry
DX: F31.31 Bipolar disorder, current episode depressed, mild (principal); F41.1 Generalized anxiety disorder; F90.9 Attention-deficit hyperactivity disorder, unspecified type
CPT/HCPCS: S9480; 90832; 90834; 90853

== ENCOUNTER 2024-08-16 07:15 | Outpatient (RCR) | payer MEDICARE, SELFPAY ==
--- NOTE | 2024-08-16 09:00 | BH.SGPN.GN ---
Behaviors/Verbalizations/Mental Status: [] ?Eye contact is good. Motor activity is appropriate. Appearance is casual. Speech is Appropriate. Mood is content, anxious. Affect is congruent. Thoughts are linear and logical. No evidence of psychosis. Reviewed daily check in sheet and no reports of suicidal ideations or intent. Client Response/Progress/Benefit: [] ?Pt was an active participant in group discussions. Attentive. Did well to identify 2 mental health wins including managing to use opposite action to complete daily responsibilities over the weekend. Additional win noted as cooking 3 meals over the weekend as well rather than ordering out. Current stressor noted as managing her daughter's behavioral issues. Reports trying to focus on what's in her control. Progress noted. Benefited from group support, encouragement, and feedback. Will continue in IOP to prevent decompensation, promote mood stability, and increase healthy coping consistency. Narrative Note: []
--- NOTE | 2024-08-16 10:10 | BH.SGPN.GN ---
Behaviors/Verbalizations/Mental Status: []Pt alert and oriented, casually dressed and groomed. Eye contact good. Motor activity appropriate. Speech within normal limits. Affect congruent, mood content, calm. Thoughts linear, logical, no signs of hallucinations or delusions. Client Response/Progress/Benefit: [] Pt an active participant in group discussions on defining conflict (internal/external) and possible benefits to conflict. Attentive during psychoeducation on conflict styles (avoidant, accommodating, competing, cooperative) and engaged during group discussion in which peers identified the benefits and consequences to each conflict style. Pt identified that pt tends to be avoidant and stated ?I avoid at all costs.? Benefited from increased awareness of the impact of conflict styles in mental health. Will continue in IOP tx to promote use of healthy coping skills, improve daily functioning, and reduce shutting down. Narrative Note: []
--- NOTE | 2024-08-16 10:12 | BH.MDN_ITS ---
Multi-Disciplinary Note Note 30-min Individual: Time Started:: 08:14 Date: 08/16/24 Purpose of session/treatment goals addressed:: The purpose of this session was to address treatment plan goal #1 obj #2 and goal #2 obj #1. Eye Contact:: Good Motor Activity:: Appropriate Appearance:: Casual Speech:: Appropriate Mood:: Depressed Affect:: Congruent Thoughts:: Linear, Logical and No evidence of hallucinations/delusions noted Staff Interventions:: thought challenging, motivational interviewing, CBT techniques and strengths perspective Client Response:: Pt receptive of session, actively engaged throughout. Reports feeling anxious and agitated today as she continues to struggle with her 8-year-old daughter?s emotional outbursts. Pt continues to struggle with finding local supports but does have In Home Based therapy scheduled to begin in September. Pt explained that her daughter intentionally opened the window and let the cat out around 3am this morning. Noted that this created a conflict with her and that she is still feeling on edge as a result. Did do well to practice grounding skills such as deep breathing this morning. Went on to note that her headset hasn?t been working, which is a way she regulates her emotions when her daughter becomes overstimulating. Pt identified the importance of having music to give herself a break and reports plans to replace her set. Pt went on to note progress in continuing to accomplish small tasks around the house, as well as getting more consistent in using positive self-talk and deep breathing. Reports she has gotten back into her spirituality and has gone to [facility] the last few we eks. Pt reports wanting to increase supports at [facility] but does not usually reach out when there. Identified the importance of communication in developing strong healthy supports. Pt identified goal to say ?hi? to at least on member of her [facility] this week. Risks/Concerns:: None note. Pt denies SI, plan, or intent as of this date. Future oriented and protective factors noted. Progress Toward Goals/Plan:: Progress remains variable. Pt continued to do well with working on improving distress tolerance and using grounding skills to manage her emotions when feeling overwhelmed or stressed out; however struggles with doing so on a consistent basis. Pt does report improved engagement in activities she enjoys and improving on advocating for her needs. Pt recommended continued IOP tx to promote gains, continue to improve mood stability, and prevent decompensation. Time Stopped:: 08:45
--- NOTE | 2024-08-16 10:12 | BH.MDN_ITS ---
Multi-Disciplinary Note Note 30-min Individual: Time Started:: 08:14 Date: 08/16/24 Purpose of session/treatment goals addressed:: The purpose of this session was to address treatment plan goal #1 obj #2 and goal #2 obj #1. Eye Contact:: Good Motor Activity:: Appropriate Appearance:: Casual Speech:: Appropriate Mood:: Depressed Affect:: Congruent Thoughts:: Linear, Logical and No evidence of hallucinations/delusions noted Staff Interventions:: thought challenging, motivational interviewing, CBT techniques and strengths perspective Client Response:: Pt receptive of session, actively engaged throughout. Reports feeling anxious and agitated today as she continues to struggle with her 8-year-old daughter?s emotional outbursts. Pt continues to struggle with finding local supports but does have In Home Based therapy scheduled to begin in September. Pt explained that her daughter intentionally opened the window and let the cat out around 3am this morning. Noted that this created a conflict with her and that she is still feeling on edge as a result. Did do well to practice grounding skills such as deep breathing this morning. Went on to note that her headset hasn?t been working, which is a way she regulates her emotions when her daughter becomes overstimulating. Pt identified the importance of having music to give herself a break and reports plans to replace her set. Pt went on to note progress in continuing to accomplish small tasks around the house, as well as getting more consistent in using positive self-talk and deep breathing. Reports she has gotten back into her spirituality and has gone to congregational the last few we eks. Pt reports wanting to increase supports at congregational but does not usually reach out when there. Identified the importance of communication in developing strong healthy supports. Pt identified goal to say ?hi? to at least on member of her congregational this week. Risks/Concerns:: None note. Pt denies SI, plan, or intent as of this date. Future oriented and protective factors noted. Progress Toward Goals/Plan:: Progress remains variable. Pt continued to do well with working on improving distress tolerance and using grounding skills to manage her emotions when feeling overwhelmed or stressed out; however struggles with doing so on a consistent basis. Pt does report improved engagement in activities she enjoys and improving on advocating for her needs. Pt recommended continued IOP tx to promote gains, continue to improve mood stability, and prevent decompensation. Time Stopped:: 08:45
--- NOTE | 2024-08-16 11:15 | BH.SGPN.GN ---
Behaviors/Verbalizations/Mental Status: []Client alert and oriented, casually dressed and groomed. Eye contact good. Motor activity appropriate. Speech within normal limits. Affect congruent, mood anxious. Thoughts linear, logical, no signs of hallucinations or delusions. Client Response/Progress/Benefit: [] Pt engaged in session AEB contributing to discussion and engaging in small group. Attentive during discussion on strategies for more effectively managing conflict in personal life. Pt noted current conflict resolution style uses the most is accommodating. Connected how this style can negatively impact her. Pt participated in small group for activity and did well practicing how to manage conflict scenarios. Pt given handout on fair fighting rules and how to identify common conflict barriers. Pt indicated what needs improvement in conflict for them. Appeared to benefit from gaining strategies to help Pt better manage conflict. Will continue IOP tx improve view of self, challenge negative thoughts, and prevent decompensation.
--- NOTE | 2024-08-17 09:00 | BH.SGPN.GN ---
Behaviors/Verbalizations/Mental Status: []Pt alert and oriented, neatly dressed and groomed. Eye contact good. Motor activity appropriate. Speech within normal limits. Affect congruent, mood content. Thoughts linear, logical, no signs of hallucinations or delusions. Reviewed pt?s symptom tracker, no risk for suicidal ideation, plan, or intent 08/17/24. Client Response/Progress/Benefit: [] Pt was an active participant in group discussions. Attentive. Able to identify mental health wins including regulating her emotions when her daughter did something destructive at home and setting a boundary by ?just saying no and not over explaining.? Pt's stressor today is ?I?m worried that my daughter will lose her Medicaid with this new bill being passed.? The group offered pt encouragement and emotional support which pt reported was helpful. Pt is feeling content this morning. Pt receptive to feedback from peers. Progress noted. Benefited from group support, encouragement, and feedback. Will continue IOP tx to promote use of healthy coping skills, improve self-compassion, and further increase use of healthy coping skills. Narrative Note: []
--- NOTE | 2024-08-17 10:10 | BH.SGPN.GN ---
Behaviors/Verbalizations/Mental Status: [] Client alert and oriented, casually dressed and groomed. Eye contact fair. Motor activity appropriate. Speech within normal limits. Affect congruent, mood anxious. Thoughts linear, logical, no signs of hallucinations or delusions. Client Response/Progress/Benefit: [] Pt engaged in session AEB client listening attentively to peers and providing input. Attentive and contributed to discussion as group worked on defining self-forgiveness and identifying mental health benefit. Identified benefits as: reduce guilt/shame, increase self-confidence, decrease negative self-talk, healthier relationships, ect. ?Worked in small groups to identify factors that can make self-forgiveness difficult. Pt identified a personal barrier to self-forgiveness. Benefited from increased education on self-forgiveness, benefits, and what effects it. Pt will continue IOP tx to maintain mood stability, challenge distortions, and prevent decompensation.
--- NOTE | 2024-08-17 11:15 | BH.SGPN.GN ---
Behaviors/Verbalizations/Mental Status: [] Client alert and oriented, casually dressed and groomed. Eye contact good. Motor activity appropriate. Speech within normal limits. Affect congruent, mood content. Thoughts linear, logical, no signs of hallucinations or delusions. Client Response/Progress/Benefit: [] Pt engaged in session AEB client listening attentively to peers and providing input. Attentive during psychoeducation on the 4 R?s of Self-Forgiveness (Responsibility, Remorse, [employer], Renewal). Contributed to discussion as group worked on identifying strategies for improving ability to practice self-forgiveness. Reports wanting to practice thought challenging and practicing self-care. Engaged in self-forgiveness activity and benefited from increased education on self-forgiveness building skills. Pt will continue IOP tx to improve mood stability, increase healthy coping repertoire, and prevent decompensation. Narrative Note: []
--- NOTE | 2024-08-18 09:05 | BH.SGPN.GN ---
Behaviors/Verbalizations/Mental Status: [] Eye contact is good. Motor activity is appropriate. Appearance is casual. Speech is Appropriate. Mood is anxious and irritable. Affect is congruent. Thoughts are linear and logical. No evidence of psychosis. Reviewed daily check in sheet and no reports of suicidal ideations or intent. Client Response/Progress/Benefit: [] Pt participated at times during group discussions. Attentive. Daily symptom tracker notes /5 for anxiety and agitation. Able to identify mental health wins and healthy habits. Continues to have sleep issues which have been ongoing for past several weeks. She is practicing mindfulness skills and also teaching them to her daughter. Using the experience to cordova and model appropriate calming strategies. Progress noted. Benefited from group support, encouragement, and feedback. Will continue in IOP to prevent decompensation/re-admission to psych unit, stabilize mood, and improve functioning. Narrative Note: []
--- NOTE | 2024-08-18 10:10 | BH.SGPN.GN ---
Behaviors/Verbalizations/Mental Status: []Eye contact is good. Motor activity is appropriate. Appearance is casual. Speech is Appropriate. Mood is anxious. Affect is congruent. Thoughts are linear and logical. No evidence of psychosis. Client Response/Progress/Benefit: [] Pt receptive to session AEB listening attentively to others and taking notes. Pt attentive and contributed throughout psychoeducation on the cognitive triangle and maintenance cycles. Pt engaged during group discussion reviewing the impact of daily activities and behaviors in either reinforcing unhealthy maintenance cycles and depression or assisting in reducing symptoms (?down? vs ?up? activities). Pt participated during interactive discussion in which pt identified their own common up activities (bubble bath, hiking/mushroom hunting, playing instruments, and journaling) and down activities (avoiding chores, doom scrolling, not taking meds, and not doing personal hygiene). Appeared to benefit from increased awareness of current behaviors and impact these have on mental health. Will continue IOP to prevent decompensation, improve coping, and decrease distortions.
--- NOTE | 2024-08-18 10:10 | BH.SGPN.GN ---
Behaviors/Verbalizations/Mental Status: [] Eye contact is good. Motor activity is appropriate. Appearance is casual. Speech is Appropriate. Mood is anxious. Affect is congruent. Thoughts are linear and logical. No evidence of psychosis. Client Response/Progress/Benefit: [] Pt receptive to session AEB listening attentively to others and taking notes. Pt attentive and contributed throughout psychoeducation on the cognitive triangle and maintenance cycles. Pt engaged during group discussion reviewing the impact of daily activities and behaviors in either reinforcing unhealthy maintenance cycles and depression or assisting in reducing symptoms (?down? vs ?up? activities). Pt participated during interactive discussion in which pts identified their own common up activities (shower, dancing, body movement, pets) and down activities (isolation, avoidance, sad music, not taking meds).Identified an up activities she can complete today which was go for a walk with my kid. Appeared to benefit from increased awareness of current behaviors and impact these have on mental health. Will continue IOP to prevent decompensation, increase healthy coping, and improve functioning. Narrative Note: []
--- NOTE | 2024-08-23 09:00 | BH.SGPN.GN ---
Behaviors/Verbalizations/Mental Status: [] Client alert and oriented, casual appearance. Eye contact good. Motor activity appropriate. Speech within normal limits. Affect congruent, mood anxious, content. Thoughts linear, logical, no signs of hallucinations or delusions. Reviewed client's symptom tracker, no risk for suicidal ideation, plan, or intent. Client Response/Progress/Benefit: [] Client responded well to session AEB listening to others and sharing thoughts/feelings. Client reported mental positive was being able to spend time hiking with her sister and finding a mushroom she had never seen before. Additional win noted as finding new ways to help support her daughter in regulating her emotions. Stressor remains her daughter's behavioral issues and shared they have an appointment today to address these further. Appeared to benefit from support from peers. Will continue IOP tx to reinforce healthy coping skills, challenge distortions, and prevent decompensation. Narrative Note: []
--- NOTE | 2024-08-23 10:05 | BH.SGPN.GN ---
Behaviors/Verbalizations/Mental Status: []Pt alert and oriented, casually dressed and groomed. Eye contact good. Motor activity appropriate. Speech within normal limits. Affect congruent, mood euthymic. Thoughts linear, logical, no signs of hallucinations or delusions. Client Response/Progress/Benefit: [] Pt took notes and contributed to group discussions. Attentive during psychoeducation on growth mindset. Interactive group discussion on fixed mindset in which group verbalized their current fixed mindsets and how they affect their mental health. Pt shared common fixed mindset thoughts they have. Pt able to connect negative impact fixed thoughts have on functioning. Pt benefited from increased awareness of growth mindset and fixed thoughts and how fixed thoughts impact their mental health. Will continue IOP tx to challenge negative thoughts, promote healthy coping, and prevent decompensation.
--- NOTE | 2024-08-25 09:00 | BH.SGPN.GN ---
Behaviors/Verbalizations/Mental Status: [] Eye contact is good. Motor activity is appropriate. Appearance is casual. Speech is Appropriate. Mood is anxious and irritable. Affect is congruent. Thoughts are linear and logical. No evidence of psychosis. Reviewed daily check in sheet and no reports of suicidal ideations or intent Client Response/Progress/Benefit: [] Pt participated at times during the group discussions. Attentive. Daily symptom tracker notes 3/5 for anxiety and 1/5 for agitation. Shared with the group that she ?made it thought? a recent mental health crisis event. She is also managing significant stressors at home well without significant decompensation. Struggling with sleep however this is more related to her daughter?s behavioral issues in the evening. Progress noted. Benefited from group support, encouragement, and feedback. Will continue in IOP to maintain safety, prevent decompensation/re-admission to psych unit, and to improve functioning. Narrative Note: []
--- NOTE | 2024-08-25 10:10 | BH.SGPN.GN ---
Behaviors/Verbalizations/Mental Status: [] Eye contact is good. Motor activity is appropriate. Appearance is casual. Speech is Appropriate. Mood is dysthymic. Affect is congruent. Thoughts are linear and logical. No evidence of psychosis. Client Response/Progress/Benefit: [] Client engaged participant at times during group session as evidenced by contributions during group discussions, appearing to listen to others, and taking notes. Client engaged in discussion about barriers that keep people from having difficult confrontations. Group identified potential reasons individuals avoid difficult conversations which included; feeling uncomfortable, reaction of others, fear, avoid conflict. Group also identified benefits to having crucial conversations. Pt identified things they do that impact their communication shutdown. Client seemed to benefit from increased awareness and education about importance of having difficult conversations and recognizing the impact of avoiding such conversations. Client to continue IOP to prevent decompensation/re-admission to psych unit, maintain safety, and improve functioning. Narrative Note: []
--- NOTE | 2024-08-25 11:10 | BH.SGPN.GN ---
Behaviors/Verbalizations/Mental Status: []Pt alert and oriented, casually dressed and groomed. Eye contact good. Motor activity appropriate. Speech within normal limits. Affect congruent, mood euthymic. Thoughts linear, logical, no signs of hallucinations or delusions. Client Response/Progress/Benefit: [] Pt was an active participant, engaged in activities and discussion. Pt able to identify ways they negatively contribute to crucial conversations and pt was engaged during psychoeducation of the different ways to build interpersonal effectiveness skills. Pt and peers practiced mirroring and active listening in partners. Group reviewed [employer] and used the handout to help map out how they would like a crucial conversation in their life to go. Pt identified talking to her about pt wanting to go back to school. Pt appeared to benefit from learning and practicing interpersonal effectiveness skills. Pt will continue IOP tx to reinforce healthy coping skills, improve daily functioning, and reduce negative self-talk. ? Narrative Note: []
--- NOTE | 2024-08-25 11:40 | PCM.BH.PN_ITS ---
Intake Intake Visit Reasons: Difficulty with sleep Allergies No Known Allergies Allergy (Verified 07/29/24 09:02) Medications ?Medication ?Instructions ?Recorded ?Confirmed ?Type hydroxyzine pamoate 25 mg capsule 25 mg PO TID PRN anx iety 14 days 07/22/2407/17 Rx (Vistaril) #42 caps atomoxetine 40 mg capsule 40 mg PO DAILY 07/29/2407/17 History (Strattera) gabapentin 300 mg capsule 300 mg PO BID 07/29/2407/29 History hydroxyzine HCl 25 mg tablet 25 mg PO TID PRN anxiety 07/29/24 07/29/24 History lithium carbonate 300 mg tablet 300 mg PO BID #60 tabs 07/29/24 Rx sertraline 100 mg tablet (Zoloft) 100 mg PO DAILY 07/1707/29/24 History levothyroxine 50 mcg tablet 50 mcg PO DAILY 08/02/24 0 08/02/24 History (Euthyrox) mirtazapine 15 mg tablet (Remeron) 7.5 mg (1/2 x 15 mg ) PO QHS 30 08/25/24 Rx days #15 tabs HPI () History of Present Illness History provided by: patient Chief complaint: Cannot sleep HPI: -Current psychiatric medications: Zoloft 100 mg, lithium 300 mg twice daily, hydroxyzine 25 3 times daily as needed, Strattera 40 mg daily, gabapentin 300 mg twice a day -SUBJECTVE: Patient is feeling a little bit anxious due to a topic they are discussing in group and also is feeling little bit anxious because her autistic daughter got up in the middle of the night and went and jumped on the [employer] have to get cameras and alarms. She stopped taking the Seroquel as she no longer found it helpful with sleep but had problems with increased appetite. Has tried trazodone over the past 4 days since she has been off Seroquel without any significant improvement. Also has been off of doxepin and has not noticed a difference. Agreeable to trying something else to help with sleep, notes she was previously on Ambien but woke up urinating in her daughter's closet, she does not note anything else that has been particularly helpful with sleep. Did try Remeron in college but she does not remember if there were any positive or negative side effects and is open to trying this again. Denies any SI/HI, no AH, said she thought she saw a horse but it was a dog but notes she has bad macular degeneration and she thinks that this was her eyes and not any kind of overt hallucination Exam Mental Status Exam- Psych () Appearance casually dressed and adequately groomed Attitude cooperative and friendly Activity/Motor Behavior restless Speech regular rate and other (Little bit soft and shaky voice) Mood anxious Affect full range Thought Process linear and logical Thought Content no delusions and no hallucinations Suicidal Ideation none Homicidal Ideation none Attention intact Concentration intact Sensorium/Orientation awake and alert Memory/Cognition intact Insight fair Judgement fair Assessment & Plan () Assessment & Plan (1) Bipolar I disorder: Plan: La has stopped taking the Seroquel and has not taken it for about 4 days and she said it no longer was helping her sleep and was just causing increased appetite. She has been taking trazodone for the past several days but without any significant improvement. She does note that her anxiety has been increased since she stopped taking the Seroquel, ultimately she is agreeable to trialing a low-dose of Remeron to see if this can help with her sleep and her anxiety. She does note a history of serotonin syndrome last December when she was on many serotonergic psychiatric medications, discussed risks and benefits of mirtazapine and patient would like to trial this medication to help with her sleep, discussed warning signs and symptoms and if she develops any to stop medicine immediately go to the ED, patient agreeable. Medications: New mirtazapine 7.5 mg (1/2 x 15 mg) PO QHS 30 days 15 tabs 0RF Discontinued doxepin Discontinued Reason: Ordered 10 mg PO QHS PRN 30 caps 0RF sleep quetiapine Discontinued Reason: Ordered 150 mg (1.5 x 100 mg) PO QDAY 30 days 45 tabs 1RF Visit Details Comments: Spent a total of [ ] minutes on the date of the service which included [ ]. Charges/Coding Behavior Health Behavior Health EST Pt E/M: 81996 Est Pt Level IV
--- NOTE | 2024-08-26 09:05 | BH.SGPN.GN ---
Behaviors/Verbalizations/Mental Status: [] Eye contact is good. Motor activity is appropriate. Appearance is casual. Speech is Appropriate. Mood is euthymic. Affect is full. Thoughts are linear and logical. No evidence of psychosis. Reviewed daily check in sheet and no reports of suicidal ideations or intent. Client Response/Progress/Benefit: [] Pt participated at times during the group discussions. Attentive. Daily symptom tracker notes / for anxiety. Able to identify mental health wins and healthy habits. She hoping to re-engage in school to learn skills to obtain a job. She is excited about this and feels that it will help with purpose and meaning as well as finances. Continued stress related to behavioral issues of her daughter which are impacting pt?s sleep and at times can exacerbate her mental health. Progress noted. Benefited from group support, encouragement, and feedback. Will continue in IOP to maintain safety, prevent decompensation/re-admission to psych unit, and to stablize mood. Narrative Note: []
--- NOTE | 2024-08-26 10:32 | BH.MDN ---
Multi-Disciplinary Note Note 30-min Individual: Time Started:: 08:15 Date: 08/26/24 Purpose of session/treatment goals addressed:: Purpose of session was to address treatment plan goal #1 Obj #1 and goal #2 obj #2 Eye Contact:: Good Motor Activity:: Appropriate Appearance:: Casual Speech:: Appropriate Mood:: Euthymic and Anxious Affect:: Congruent Thoughts:: Linear, Logical and No evidence of hallucinations/delusions noted Staff Interventions:: motivational interviewing, CBT techniques, discharge planning and other (began aftercare maintenance plan) Client Response:: Pt reports overall doing better this week compared with last session. Stated that she has making more of an effort to actively engage is self-care activities including practicing mindfulness and giving herself credit for her accomplishments. Pt notes that she continues to have difficulties with her daughter?s behaviors but feels more confident in her ability to manage them without it letting it impact her mood or become dysregulated. Pt expressed feeling proud of herself for advocating for her daughter to get a 504 plan for the upcoming school year. States that this will allow for her to have someone sit with her in the classroom and will likely reduce the chance of having an outburst during the school day. Pt described reaching out to the supervisor hot dip tinning of a local support group for parents of children with developmental disabilities. Shared hope that this will help her to feel more connected and less alone in the parenting process. Pt shared feeling ready to d/c from treatment next week and plans to reach out to her outpatient therapist this week. Risks/Concerns:: Non noted. Pt denies SI, plan, or intent Progress Toward Goals/Plan:: Progress noted. Pt reports improve mood and motivation today. Stated that she she has more consistently been engaging in hobbies, reaching out to supports, and advocating for her needs. Improved ability to manage her emotions when encountering stressors and discussed hope for her future. Pt noted trying new things as well as has stated paint by numbers. Pt is also planning to look into going back to school with a goal of returning to work. Recommended continued tx for one week to complete aftercare planning. Time Stopped:: 08:48
--- NOTE | 2024-08-26 11:15 | BH.SGPN.GN ---
Behaviors/Verbalizations/Mental Status: []Pt alert and oriented, casually dressed and groomed. Eye contact good. Motor activity appropriate. Speech within normal limits. Affect congruent, mood content. Thoughts linear, logical, no signs of hallucinations or delusions. Client Response/Progress/Benefit: [] Pt responded well to session, engaged and contributing. Pt discussed with group things that contribute to mental wellness life. With peers, pt discussed things that would sabotage one's mental health wellness. Pt identified things pt personally does to sabotage as avoidance and shutting down. Pt attentive during psychoeducation on ways to reduce self-sabotage and pt selected using dialectical thinking and taking a break when overwhelmed?as the skill that could help pt reduce self-sabotaging behaviors. Pt appeared to benefit from learning skills and gaining awareness of self-sabotaging behaviors. Pt will continue IOP tx to prevent decompensation, improve distress tolerance skills, and combat negative self-talk. Narrative Note: []
--- NOTE | 2024-08-26 15:00 | BH.SGPN.GN ---
Behaviors/Verbalizations/Mental Status: [] Pt alert and oriented, casually dressed and groomed. Eye contact good. Motor activity appropriate. Speech within normal limits. Mood: anxious. Affect: congruent. Thoughts linear, logical, no signs of hallucinations or delusions. Client Response/Progress/Benefit: [] Pt was an active participate during group discussions. Attentive during psychoeducation on self-sabotage and its impact on mental health. Worked with peers to identify reasons individuals perform self-sabotage behaviors (fear of rejection, learned behavior, coping mechanism, fear of failure, insecurity, and feeling like they are not worthy). Pt identified the forms of self-sabotage that impact their mental health the most which included (isolation, perfectionism, lashing out, procrastination, poor communication and people-pleasing). Seemed to benefit from gaining awareness about the self-sabotage. Pt to continue IOP tx to prevent decompensation/re-admission to psych unit, stabilize mood, and improve functioning. Narrative Note: []
--- NOTE | 2024-08-30 09:02 | BH.SGPN.GN ---
Behaviors/Verbalizations/Mental Status: [] Client alert and oriented, casual appearance. Eye contact good. Motor activity appropriate. Speech within normal limits. Affect congruent, mood euthymic. Thoughts linear, logical, no signs of hallucinations or delusions. Reviewed client's symptom tracker, no risk for suicidal ideation, plan, or intent. Client Response/Progress/Benefit: [] Client responded well to session AEB listening to others and sharing thoughts/feelings. Client reported mental positive as seen with the uncomfortable by choosing to sit with other people at adventism instead of sitting in the back of the adventism by herself. Client stated she did find herself to enjoy being around others. 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 Client stated this is something that she has wanted to do for a long time and is proud of herself for starting the application process. Client noted current emotion as happy. Appeared to benefit from support from peers. Will continue IOP tx to promote use of healthy coping skills and prevent decompensation. Narrative Note: []
--- NOTE | 2024-08-30 09:02 | BH.SGPN.GN ---
Behaviors/Verbalizations/Mental Status: [] Client alert and oriented, casual appearance. Eye contact good. Motor activity appropriate. Speech within normal limits. Affect congruent, mood euthymic. Thoughts linear, logical, no signs of hallucinations or delusions. Reviewed client's symptom tracker, no risk for suicidal ideation, plan, or intent. Client Response/Progress/Benefit: [] Client responded well to session AEB listening to others and sharing thoughts/feelings. Client reported mental positive as seen with the uncomfortable by choosing to sit with other people at religious instead of sitting in the back of the religious by herself. Client stated she did find herself to enjoy being around others. 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 Client stated this is something that she has wanted to do for a long time and is proud of herself for starting the application process. Client noted current emotion as happy. Appeared to benefit from support from peers. Will continue IOP tx to promote use of healthy coping skills and prevent decompensation. Narrative Note: []
--- NOTE | 2024-08-30 10:10 | BH.SGPN.GN ---
Behaviors/Verbalizations/Mental Status: []Pt alert and oriented, casually dressed and groomed. Eye contact good. Motor activity appropriate. Speech within normal limits. Mood is euthymic. Affect is congruent. Thoughts linear, logical, no signs of hallucinations or delusions. Client Response/Progress/Benefit: [] Pt was an active?participant in group discussions and experiential activity. Worked with peers to identify benefits of healthy relationships which included; support, shared experiences, laughter, understanding, and perspective challenge. Group identified factors that lead to unhealthy relationships which included; not being a ?good space mentally,? trauma-bonding, poor communication, and manipulation/toxic behaviors. Pt feels that negative self-talk can lead to being in unhealthy relationships. Benefited from increased insight and awareness of benefits of healthy relationships and factors that contribute to unhealthy relationships. Will continue IOP to promote use of healthy coping skills and establish aftercare. ?? Narrative Note: []
--- NOTE | 2024-08-30 11:00 | BH.SGPN.GN ---
Behaviors/Verbalizations/Mental Status: [] Pt alert and oriented, casually dressed and groomed. Eye contact good. Motor activity appropriate. Speech within normal limits. Mood anxious. Affect congruent. Thoughts linear, logical, no signs of hallucinations or delusions. Client Response/Progress/Benefit: [] Pt responded well to session, engaged and taking notes throughout. Worked with group to connect components of the experiential activity with characteristics of healthy and unhealthy relationships. Attentive during psychoeducation about characteristics of healthy, unhealthy, and abusive relationships. Pt reported she has some healthy traits and she wants to work on ?staying calm and setting clearer boundaries? Appeared to benefit from identifying current healthy relationship attributes. Pt to continue IOP tx to prevent decompensation/re-admission to psych unit, stabilize mood, and improve functioning. Narrative Note: []
--- NOTE | 2024-08-31 09:05 | BH.SGPN.GN ---
Behaviors/Verbalizations/Mental Status: [] Eye contact is good. Motor activity is appropriate. Appearance is casual. Speech is Appropriate. Mood is dysthymic. Affect is congruent. Thoughts are linear and logical. No evidence of psychosis. Reviewed daily check in sheet and no reports of suicidal ideations. Client Response/Progress/Benefit: [] Pt participated at times during the group discussions. Attentive. Shared with the group ? I?m here? stating that it was a stuggle to get motivated this AM. Feeling tired. Continued issues with sleep which appears to be related to caring for her daughter. She is maintain healthy habits as she is keeping up with goals and tasks at home. Future-oriented. Progress noted. Benefited from group support, encouragement, and feedback. Will continue in IOP to prevent decompensation/re-admission to psych unit, stabilize mood, and improve functioning Narrative Note: []
--- NOTE | 2024-08-31 10:00 | BH.SGPN.GN ---
Behaviors/Verbalizations/Mental Status: []Eye contact is good. Motor activity is appropriate. Appearance is casual. Speech is Appropriate. Mood is anxious. Affect is congruent. Thoughts are linear and logical. No evidence of psychosis. Client Response/Progress/Benefit: [] Pt was an active participant in group discussions. Attentive during psychoeducation. Contributed during interactive discussions in which peers attempted to define crisis. Group identified crisis examples. Group also worked together to identify warning signs and unhealthy responses to crisis which included shutting down, isolation, avoidance, over-thinking, disordered eating, and self-harm. Pt identified top 3 warning signs as: racing thoughts, urges to self-harm, and avoidance. Benefited from increased understanding of crisis and awareness of personal responses to crisis. Pt will continue IOP tx to promote mood stability, prevent decompensation, and increase distress tolerance. Narrative Note: []
--- NOTE | 2024-08-31 11:10 | BH.SGPN.GN ---
Behaviors/Verbalizations/Mental Status: []Pt alert and oriented, appropriate grooming/appearance. Eye contact good. Motor activity appropriate. Speech within normal limits. Affect congruent, mood depressed and anxious. Thoughts linear, logical, no signs of hallucinations or delusions. Client Response/Progress/Benefit: []Pt was an active participant in group discussions. Attentive during psychoeducation. In small group pt along with peers developed an active plan for their crisis warning signs. Pt identified three crisis warning signs as well as an action plan for each. One crisis warning sign was to stop doing things she enjoys. Pt identified strategies to help with this such as: Focusing accomplishing 1-2 small goals each day, asking for support, and reminding herself how she will feel after she does nothing. Benefited from increased awareness of crisis warning signs and by developing crisis intervention strategies. Will continue in IOP to promote utilization of healthy coping skills, challenge negative thought patterns, and prevent decompensation.
--- NOTE | 2024-09-01 10:51 | BH.MDN_ITS ---
Multi-Disciplinary Note Note 30-min Individual: Date: 09/01/24 Purpose of session/treatment goals addressed:: To address current stressors and discuss strategies to help cope with these stressors. Another goal was discussing discharge. Eye Contact:: Good Motor Activity:: Appropriate Appearance:: Casual Speech:: Appropriate Mood:: Euthymic Affect:: Congruent Thoughts:: Linear, Logical and No evidence of hallucinations/delusions noted Staff Interventions:: thought challenging, motivational interviewing, discharge planning and reviewed DSM-5 Client Response:: Pt responded well to session, open to meeting with therapist. Pt reports feeling accomplish but a little nervous today and indicated this is related to her upcoming discharge. Pt shared she notices progress in a lot of areas including being able to manage triggers for anxiety and stress much better than she was months ago. Pt's DSM-5 scores have decreased and pt continues to report completing daily responsibilities. Pt stated she had another trigger with her daughter recently but was able to walk away without it escalating to point of crisis. Pt reports that she also recently advocated with her by communicating the importance of going back to school to her. Shared feeling an increased sense of purpose and excitement as a result. Pt reports she is not sure when she will return to work but will be starting school in the fall. Pt and therapist reviewed skills to balance her return to school with caregiving responsibilities. Pt was offered to join [facility] aftercare, but pt declined at this time. Pt will discharge today and has an appointment scheduled with her outpatient therapist. Risks/Concerns:: Pt denies any suicidal ideation, plan, or intent. Pt denies any thoughts of . Progress Toward Goals/Plan:: Pt saw an overall reduction in sx since beginning the IOP program. She reports improvement in mood stability and self- confidence. She noted that she feels more capable of navigating daily stressors, managing her mood swings, and prioritizing self-care. Pt noted improved communication with her and better self-advocacy. She will benefit from continued outpatient tx to further promote consistent skill application, promote positive self-talk, and prevent decompensation.
--- NOTE | 2024-09-01 10:55 | BH.DS_ITS ---
Discharge Summary Demographics Date of Admission:: 07/21/24 Discharge Date: 09/01/24 Presenting Problems at Admission:: Pt is a 43 year old female who has a hx of bipolar disorder, depression, anxiety, and adhd. She was referred to the [facility] IOP by her outpatient provider at [facility] after being hospitalized x3 in the month of June. Patient had suicide attempt by overdose attempt with trazodone after which she was hospitalized at [facility]. Shortly af ter patient had SI of walking in to traffic and called crisis and subsequently hospitalized at [facility]. She got sick shortly after and was started on prednisone which apparently triggered an episode of psychosis. [place] like she was in a mixed episode and was then hospitalized at [facility].. Follows with Dr. Mccoy at [address] [place] [address] Psychiatry. Describes mood now as anxious. Last night was particularly stressful as her daughter has autism and ADHD and has been having meltdowns. She is 8 years old. Last lithium was after hospitalization. 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 Did recently have a online neuropsychology appointment which apparently led to a diagnosis of autism Spectrum. Pt endorses chronic suicidal ideation, negative self-talk, guilt, worthlessness, hopelessness, racing thoughts, rumination, anhedonia, and low motivation Discharge Diagnoses:: Major Depressive Disorder, Generalized Anxiety Disorder, ADHD, Bipolar I Disorder Reason for Discharge:: Pt has accomplished her tx goals AEB her reduction of DMS-5 symptoms for anxiety, her self-report of improved functioning and mood, and improved outlook. Pt no longer meets criteria for [facility] level of care and will discharge to outpatient counseling. Treatment Progress During Treatment & Response: Pt has responded well to treatment as evidenced by Pt consistently attending IOP sessions and her reduction of DSM-5 scores since admission. Pt was always attentive and receptive to learning during group and individual sessions. Pt actively applies coping skills outside of IOP and reports her mood is improved and she is functioning better than she was several months ago. Pt has increased her ability to manage her stressors and navigate her daughter?s emotional outbursts, cope with unexpected triggers, and challenge negative thought patterns. 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 Issues Still to be Addressed:: Managing her chaya and depressive symptoms, setting boundaries, self-compassion and self-love, and increasing social supports. Discharge Recommendations/Instructions:: Pt will continue to follow-up with her outpatient providers. Alethea Caraballo at [facility] for medication management and Miracle at [facility] for individual outpatient counseling Discharge Handout
--- NOTE | 2024-09-01 10:55 | BH.DS_ITS ---
Discharge Summary Demographics Date of Admission:: 07/21/24 Discharge Date: 09/01/24 Presenting Problems at Admission:: Pt is a 43 year old female who has a hx of bipolar disorder, depression, anxiety, and adhd. She was referred to the [facility] IOP by her outpatient provider at [facility] after being hospitalized x3 in the month of June. Patient had suicide attempt by overdose attempt with trazodone after which she was hospitalized at [facility]. Shortly af ter patient had SI of walking in to traffic and called crisis and subsequently hospitalized at [facility]. She got sick shortly after and was started on prednisone which apparently triggered an episode of psychosis. [place] like she was in a mixed episode and was then hospitalized at [facility].. Follows with Dr. Mccoy at [address] [place] [address] Psychiatry. Describes mood now as anxious. Last night was particularly stressful as her daughter has autism and ADHD and has been having meltdowns. She is 8 years old. Last lithium was after hospitalization. 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 Did recently have a online neuropsychology appointment which apparently led to a diagnosis of autism Spectrum. Pt endorses chronic suicidal ideation, negative self-talk, guilt, worthlessness, hopelessness, racing thoughts, rumination, anhedonia, and low motivation Discharge Diagnoses:: Major Depressive Disorder, Generalized Anxiety Disorder, ADHD, Bipolar I Disorder Reason for Discharge:: Pt has accomplished her tx goals AEB her reduction of DMS-5 symptoms for anxiety, her self-report of improved functioning and mood, and improved outlook. Pt no longer meets criteria for [facility] level of care and will discharge to outpatient counseling. Treatment Progress During Treatment & Response: Pt has responded well to treatment as evidenced by Pt consistently attending IOP sessions and her reduction of DSM-5 scores since admission. Pt was always attentive and receptive to learning during group and individual sessions. Pt actively applies coping skills outside of IOP and reports her mood is improved and she is functioning better than she was several months ago. Pt has increased her ability to manage her stressors and navigate her daughter?s emotional outbursts, cope with unexpected triggers, and challenge negative thought patterns. 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 Issues Still to be Addressed:: Managing her chaya and depressive symptoms, setting boundaries, self-compassion and self-love, and increasing social supports. Discharge Recommendations/Instructions:: Pt will continue to follow-up with her outpatient providers. Alethea Caraballo at [facility] for medication management and Miracle at [facility] for individual outpatient counseling Discharge Handout
--- NOTE | 2024-09-01 11:10 | BH.SGPN.GN ---
Behaviors/Verbalizations/Mental Status: [] Client alert and oriented, casually dressed and groomed. Eye contact good. Motor activity appropriate. Speech within normal limits. Affect constricted, mood euthymic. Thoughts linear, logical, no signs of hallucinations or delusions. Client Response/Progress/Benefit: [] Client responded well to session AEB taking notes and providing some input and examples throughout. Group discussed the different categories of coping skills which included distraction, emotional release, grounding, self-love, and thought challenging. Client created a coping skill menu identifying various skills to try in each category. Client?s coping skill menu included: puzzles, hiking, body sock, using special lotion, and use dialects. Appeared to benefit from increasing repertoire of healthy coping skills. Client successfully completing program today and discharging. Narrative Note: []
== END 2024-09-01 12:00 | disposition home or self-care (01) ==
LOC: BHIOP 07:15
PROVIDERS: PCP Family Medicine; Referring Provider Psychiatry & Neurology Psychiatry; Visit Provider Psychiatry & Neurology Psychiatry
DX: F31.9 Bipolar disorder, unspecified (principal)
CPT/HCPCS: S9480; 90832; 90853